=== PATIENT | male | born 1950 | race Caucasian/White ===

== ENCOUNTER 2017-10-07 16:35 | Inpatient (IN) | payer OTHER, MEDICARE ==
[~2017-10-07] VITALS: Ht 175.3 cm; Wt 108.0 kg
[~2017-10-07 16:35] MED LIST: ATOR10 PO; DIAB1.25 PO; ROSI1TAB23
[2017-10-07 16:38] VITALS: BP 139/89; PULSE 111; RESP 18; TEMP 98.2; O2SAT 96
[2017-10-07 18:20] LABS: AUTOMATED NEUTROPHIL # 8.4 TH/MM3 (1.8-7.7); BASOPHIL # 0.1 TH/MM3 (0-0.2); BASOPHIL % 1.1 % (0.0-2.0); EOSINOPHIL # 0.5 TH/MM3 (0-0.4); EOSINOPHIL % 4.1 % (0.0-4.0); HEMATOCRIT 33.2 % (39.0-51.0); HEMOGLOBIN 11.3 GM/DL (13.0-17.0); LYMPH % 12.6 % (9.0-44.0); LYMPHOCYTE # 1.4 TH/MM3 (1.0-4.8); MEAN CELL VOLUME 85.9 FL (80.0-100.0); MEAN CORPUSCULAR HEMOGLOBIN 29.2 PG (27.0-34.0); MEAN PLATELET VOLUME 7.7 FL (7.0-11.0); MONO % 8.9 % (0.0-8.0); NEUT % 73.3 % (16.0-70.0); PLATELET COUNT 291 TH/MM3 (150-450); RED BLOOD COUNT 3.86 MIL/MM3 (4.50-5.90); RED CELL DISTRIBUTION WIDTH 16.4 % (11.6-17.2); WHITE BLOOD COUNT 11.4 TH/MM3 (4.0-11.0)
[2017-10-07 18:21] LABS: PROTHROMBIN TIME - PATIENT 10.3 SEC (9.8-11.6)
[2017-10-07 18:28] LABS: BICARBONATE 26.5 MEQ/L (21.0-32.0); CALCIUM 9.2 MG/DL (8.5-10.1); CREATININE 3.41 MG/DL (0.60-1.30)
[2017-10-07] MEDS ORDERED: HYDR-3799 PO (18:45)
[2017-10-07] MEDS ORDERED: CALC667T PO (18:45)
[2017-10-07] MEDS ORDERED: AMLO10TA2 PO (18:45)
[2017-10-07] MEDS ORDERED: METO10TA4 PO (18:45)
[2017-10-07] MEDS ORDERED: NOVOINJ3 SQ (18:45)
[2017-10-07] MEDS ORDERED: CHOL10008 PO (18:45)
[2017-10-07] MEDS ORDERED: ALLO300T2 PO (18:45)
[2017-10-07] MEDS ORDERED: FURO20TA PO (18:45)
[2017-10-07] MEDS ORDERED: CLOP75TA PO (18:45)
[2017-10-07] MEDS ORDERED: CARV6.252 PO (18:45)
[2017-10-07] MEDS ORDERED: CENTCHW4 CHEW (18:45)
[2017-10-07] MEDS ORDERED: CLON0.1T PO (18:45)
[2017-10-07] MEDS ORDERED: LANTUS2P SQ (18:45)
[2017-10-07] MEDS ORDERED: FERR324T4 PO (18:45)
[2017-10-07] MEDS ORDERED: ATOR80TA45 PO (18:45)
[2017-10-07] MEDS ORDERED: ASPI81TA23 PO (18:45)
[2017-10-07 19:25] VITALS: BP 168/93; PULSE 106; RESP 20; O2SAT 95
--- NOTE | 2017-10-07 19:41 | PD ---
HPI Chief Complaint: General Weakness Time Seen by Provider: 19:21 Travel History International Travel<30 days: No Contact w/Intl Traveler<30days: No Traveled to known affect area: No History of Present Illness HPI 59-year-old male arrives with increasing weakness of the left leg. He reports falling for the past 2 weeks and every day it seems to be worsening for him with more frequent falls. Imaging was performed at outside facility revealing spinal canal stenosis and spinal stenosis at L4-5 and L5-S1 by CT. He denies changes in bowel or bladder habits/incontinence. He also denies any saddle anesthesia or numbness/tingling. Timing constant. Symptoms are gradually worsening. PFSH Past Medical History Hx Anticoagulant Therapy: Yes Arthritis: Yes Cardiovascular Problems: Yes High Cholesterol: Yes Diabetes: Yes Patient Takes Glucophage: No Hypertension: Yes Sleep Apnea: Yes Tetanus Vaccination: < 5 Years Influenza Vaccination: Yes Past Surgical History Abdominal Surgery: Yes Cholecystectomy: Yes Social History Alcohol Use: Yes ([employer]) Tobacco Use: No Substance Use: No Allergies-Medications (Allergen,Severity, Reaction): Coded Allergies: No Known Allergies (Verified Allergy, Mild, 10/07/17) Reported Meds & Prescriptions Reported Meds & Active Scripts Active Reported Metolazone 10 Mg Tab 10 Mg PO DAILY Clopidogrel (Clopidogrel Bisulfate) 75 Mg Tab 75 Mg PO DAILY Allopurinol 300 Mg Tab 300 Mg PO DAILY Furosemide 20 Mg Tab 20 Mg PO DAILY Aspirin EC (Aspirin) 81 Mg Tabdr 81 Mg PO DAILY Carvedilol 6.25 Mg Tab 3.125 Mg PO BID Clonidine (Clonidine HCl) 0.1 Mg Tab 0.1 Mg PO BID Amlodipine (Amlodipine Besylate) 10 Mg Tab 10 Mg PO DAILY Atorvastatin (Atorvastatin Calcium) 80 Mg Tab 80 Mg PO HS Hydralazine HCl 25 Mg Tablet 25 Mg PO TID Centrum (Multiple Vitamins W/ Minerals) 1 Chew 1 Tab CHEW DAILY Vitamin D3 (Cholecalciferol) 1,000 Unit Cap 2,000 Units PO DAILY Ferrous Sulfate DR (Ferrous Sulfate) 324 Mg Tabdr 324 Mg PO DAILY Calcium Acetate (Phosphate Binder) 667 Mg Tab 667 Mg PO TID Novolog Flexpen Inj (Insulin Aspart) 300 Unit/3 Ml Pen 1 Units SQ TIDAC Lantus Inj (Insulin Glargine) 1,000 Unit/10 Ml Vial 70 Units SQ HS Review of Systems Except as stated in HPI: all other systems reviewed are Neg General / Constitutional: No: Fever Physical Exam Narrative GENERAL: 67-year-old male pleasant in mild distress Vital Signs Date Time Temp Pulse Resp B/P (MAP) Pulse Ox O2 Delivery O2 Flow Rate FiO2 10/07/17 19:25 106 20 168/93 (118) 95 Room Air 10/07/17 16:38 98.2 111 18 139/89 (106) 96 NEUROLOGIC exam: Flexion-extension at the knee is mildly decreased compared to the right approximately 4/5. Ankle flexion and extension is somewhat limited on the left compared to the right about 4 or 5. There is no deep tendon reflex in the patellar tendon on the left side however it is intact on the right. The patient is able to stand and take a few steps however does require assistance with both arms and the exam was furthermore limited by pain. SKIN: Warm and dry. HEAD: Atraumatic. Normocephalic. EYES: Pupils equal and round. No scleral icterus. No injection or drainage. ENT: No nasal bleeding or discharge. Mucous membranes pink and moist. NECK: Trachea midline. No JVD. CARDIOVASCULAR: Regular rate and rhythm. RESPIRATORY: No accessory muscle use. Clear to auscultation. Breath sounds equal bilaterally. GASTROINTESTINAL: Abdomen soft, non-tender, nondistended. Hepatic and splenic margins not palpable. MUSCULOSKELETAL: Extremities without clubbing, cyanosis, or edema. No obvious deformities. PSYCHIATRIC: Appropriate mood and affect; insight and judgment normal. Data Data Last Documented VS Vital Signs Date Time Temp Pulse Resp B/P (MAP) Pulse Ox O2 Delivery O2 Flow Rate FiO2 10/07/17 19:25 106 20 168/93 (118) 95 Room Air 10/07/17 16:38 98.2 Orders Orders Complete Blood Count With Diff (10/07/17 17:00) Basic Metabolic Panel (Bmp) (10/07/17 17:00) Coag Profile (10/07/17 17:00) Electrocardiogram (10/07/17 ) Admit Order (Ed Use Only) (10/07/17 ) Vital Signs (Adult) Q4H (10/07/17 19:41) Diet Heart Healthy (10/08/17 Breakfast) Activity Bed Rest (10/07/17 19:41) Labs Laboratory Tests Test 10/07/17 17:30 White Blood Count 11.4 TH/MM3 Red Blood Count 3.86 MIL/MM3 Hemoglobin 11.3 GM/DL Hematocrit 33.2 % Mean Corpuscular Volume 85.9 FL Mean Corpuscular Hemoglobin 29.2 PG Mean Corpuscular Hemoglobin Concent 34.0 % Red Cell Distribution Width 16.4 % Platelet Count 291 TH/MM3 Mean Platelet Volume 7.7 FL Neutrophils (%) (Auto) 73.3 % Lymphocytes (%) (Auto) 12.6 % Monocytes (%) (Auto) 8.9 % Eosinophils (%) (Auto) 4.1 % Basophils (%) (Auto) 1.1 % Neutrophils # (Auto) 8.4 TH/MM3 Lymphocytes # (Auto) 1.4 TH/MM3 Monocytes # (Auto) 1.0 TH/MM3 Eosinophils # (Auto) 0.5 TH/MM3 Basophils # (Auto) 0.1 TH/MM3 CBC Comment DIFF FINAL Differential Comment Prothrombin Time 10.3 SEC Prothromb Time International Ratio 1.0 RATIO Activated Partial Thromboplast Time 29.9 SEC Blood Urea Nitrogen 59 MG/DL Creatinine 3.41 MG/DL Random Glucose 145 MG/DL Calcium Level 9.2 MG/DL Sodium Level 137 MEQ/L Potassium Level 4.0 MEQ/L Chloride Level 100 MEQ/L Carbon Dioxide Level 26.5 MEQ/L Anion Gap 11 MEQ/L Estimat Glomerular Filtration Rate 18 ML/MIN MDM Medical Decision Making Medical Screen Exam Complete: Yes Emergency Medical Condition: Yes Medical Record Reviewed: Yes Differential Diagnosis Fracture, spinal stenosis, acute on chronic degenerative disc disease, abscess Narrative Course Patient has a symptomatic spinal cord disease. The case was discussed with Dr. Guaman our neurosurgeon. Will admit to the hospitalist service service with a consult to him. CBC & BMP Diagram 10/07/17 17:30 Calcium Level 9.2 d/w Dr Guaman d/w Dr Stallworth Diagnosis Primary Impression: Weakness Additional Impression: Stenosis of lumbosacral spine Admitting Information Admitting Physician Requests: Observation Trey Rojas MD Oct 07, 2017 19:41
[2017-10-07] MEDS ORDERED: ACETAMINOPHEN/HYDROcodone 325 MG/5 MG TAB PO ONE (20:00)
[2017-10-07] MEDS ORDERED: GLUCAGON 1 MG/ML VIAL OTHER PRN (20:15)
[2017-10-07] MEDS ORDERED: DEXTROSE 50% IN WATER 50 ML VIAL(D50) IV PUSH PRN (20:15)
[2017-10-07] MEDS ORDERED: ACETAMINOPHEN/HYDROcodone 325 MG/5 MG TAB PO PRN (20:15)
[2017-10-07] MEDS ORDERED: INSULIN GLARGINE 1,000 UNITS/10 ML VIAL SQ SCH (21:00)
[2017-10-07] MEDS ORDERED: INSULIN DETEMIR 100 UNITS/ML VIAL SQ SCH (21:15)
[2017-10-07 22:15] VITALS: BP 180/100; PULSE 107; RESP 20; TEMP 97.4; O2SAT 95
[2017-10-07] MEDS: cloNIDine HCL 0.1 MG TAB PO SCH (22:25)
[2017-10-07] MEDS: INSULIN ASPART SUPPLEMENTAL SCALE SQ SCH (22:26)
[2017-10-07] MEDS: ATORVASTATIN 80 MG TAB PO SCH (22:26)
[2017-10-07] MEDS: CARVEDILOL 3.125 MG TAB PO SCH (22:31)
--- NOTE | 2017-10-07 22:38 | HHI.HP ---
[facility] Admission Diagnosis Spinal Stenosis; LLE Weakness Diagnoses: Travel History International Travel<30 Days: No Contact w/Intl Traveler <30 Da: No Traveled to Known Affected Are: No History of Present Illness 67-year-old male with a past medical history significant for chronic kidney disease stage IV, diabetes mellitus, hypertension and hyperlipidemia presents the emergency department for evaluation of left lower extremity weakness. The patient reports that approximately one month ago he began having left lower extremity weakness and numbness/tingling. He also reports that he started falling. He was seen in the hospital last week in [place] where he was found to have severe spinal stenosis at L4-L5 and L5-S1. Patient denies any bowel or bladder incontinence. Per patient report, they wanted him to undergo an EMG at the Hospital in [place] however were unable to do so secondary to his chronic kidney disease. He was not evaluated by neurosurgery at this time. The patient reports an inability to raise his left lower extremity. He reports associated pain/numbness/tingling. Denies chest pain or shortness of breath. Denies nausea/vomiting/diarrhea. Review of Systems Except as stated in HPI: all other systems reviewed are Neg Past Family Social History Past Medical History Chronic kidney disease stage IV Diabetes mellitus Hypertension Hyperlipidemia Past Surgical History Cervical fusion Appendectomy Reported Medications Reported Meds & Active Scripts Active Reported Metolazone 10 Mg Tab 10 Mg PO DAILY Clopidogrel (Clopidogrel Bisulfate) 75 Mg Tab 75 Mg PO DAILY Allopurinol 300 Mg Tab 300 Mg PO DAILY Furosemide 20 Mg Tab 20 Mg PO DAILY Aspirin EC (Aspirin) 81 Mg Tabdr 81 Mg PO DAILY Carvedilol 6.25 Mg Tab 3.125 Mg PO BID Clonidine (Clonidine HCl) 0.1 Mg Tab 0.1 Mg PO BID Amlodipine (Amlodipine Besylate) 10 Mg Tab 10 Mg PO DAILY Atorvastatin (Atorvastatin Calcium) 80 Mg Tab 80 Mg PO HS Hydralazine HCl 25 Mg Tablet 25 Mg PO TID Centrum (Multiple Vitamins W/ Minerals) 1 Chew 1 Tab CHEW DAILY Vitamin D3 (Cholecalciferol) 1,000 Unit Cap 2,000 Units PO DAILY Ferrous Sulfate (Ferrous Sulfate) 324 Mg Tabdr 324 Mg PO DAILY Calcium Acetate (Phosphate Binder) 667 Mg Tab 667 Mg PO TID Novolog Flexpen Inj (Insulin Aspart) 300 Unit/3 Ml Pen 1 Units SQ TIDAC Lantus Inj (Insulin Glargine) 1,000 Unit/10 Ml Vial 70 Units SQ HS Allergies: Coded Allergies: No Known Allergies (Verified Allergy, Mild, 10/07/17) Family History Negative for CAD/DM Social History Remote history of smoking. Rare alcohol. Denies illicit drugs. Physical Exam Vital Signs Vital Signs Date Time Temp Pulse Resp B/P (MAP) Pulse Ox O2 Delivery O2 Flow Rate FiO2 10/07/17 19:25 106 20 168/93 (118) 95 Room Air 10/07/17 16:38 98.2 111 18 139/89 (106) 96 Physical Exam GENERAL: Obese, male lying in bed SKIN: No rashes, ecchymoses or lesions. Cool and dry. HEAD: Atraumatic. Normocephalic. No temporal or scalp tenderness. EYES: Pupils equal round and reactive. Extraocular motions intact. No scleral icterus. No injection or drainage. ENT: Nose without bleeding, purulent drainage or septal hematoma. Throat without erythema, tonsillar hypertrophy or exudate. Uvula midline. Airway patent. NECK: Trachea midline. No JVD or lymphadenopathy. Supple, nontender, no meningeal signs. CARDIOVASCULAR: Regular rate and rhythm without murmurs, gallops, or rubs. RESPIRATORY: Clear to auscultation. Breath sounds equal bilaterally. No wheezes , rales, or rhonchi. GASTROINTESTINAL: Abdomen soft, non-tender, nondistended. No hepato-splenomegaly , or palpable masses. No guarding. MUSCULOSKELETAL: Extremities without clubbing, cyanosis, or edema. No joint tenderness, effusion, or edema noted. No calf tenderness. NEUROLOGICAL: Awake and alert. Cranial nerves II through XII intact. Motor and sensory grossly within normal limits. Normal speech. Left lower extremity plantar flexion/extension 5/5. Unable to raise his left lower extremity off the bed. Laboratory Laboratory Tests Test 10/07/17 17:30 White Blood Count 11.4 Red Blood Count 3.86 Hemoglobin 11.3 Hematocrit 33.2 Mean Corpuscular Volume 85.9 Mean Corpuscular Hemoglobin 29.2 Mean Corpuscular Hemoglobin Concent 34.0 Red Cell Distribution Width 16.4 Platelet Count 291 Mean Platelet Volume 7.7 Neutrophils (%) (Auto) 73.3 Lymphocytes (%) (Auto) 12.6 Monocytes (%) (Auto) 8.9 Eosinophils (%) (Auto) 4.1 Basophils (%) (Auto) 1.1 Neutrophils # (Auto) 8.4 Lymphocytes # (Auto) 1.4 Monocytes # (Auto) 1.0 Eosinophils # (Auto) 0.5 Basophils # (Auto) 0.1 CBC Comment DIFF FINAL Differential Comment Prothrombin Time 10.3 Prothromb Time International Ratio 1.0 Activated Partial Thromboplast Time 29.9 Blood Urea Nitrogen 59 Creatinine 3.41 Random Glucose 145 Calcium Level 9.2 Sodium Level 137 Potassium Level 4.0 Chloride Level 100 Carbon Dioxide Level 26.5 Anion Gap 11 Estimat Glomerular Filtration Rate 18 Result Diagram: 10/07/17172910/07/17 173 Caprini VTE Risk Assessment Caprini VTE Risk Assessment: Mod/High Risk (score >= 2) Caprini Risk Assessment Model Point Value = 1 Point Value = 2 Point Value = 3 Point Value = 5 Age 41-60 Minor surgery BMI > 25 kg/m2 Swollen legs Varicose veins or History of unexplained or recurrent spontaneous Oral contraceptives or hormone replacement Sepsis (< 1 month) Serious lung disease, including pneumonia (< 1 month) Abnormal pulmonary function Acute myocardial infarction Congestive heart failure (< 1 month) History of inflammatory bowel disease Medical patient at bed rest Age 61-74 Arthroscopic surgery Major open surgery (> 45 min) Laparoscopic surgery (> 45 min) Malignancy Confined to bed (> 72 hours) Immobilizing plaster cast Central venous access Age >= 75 History of VTE Family history of VTE Factor V Leiden Prothrombin [id number] Lupus anticoagulant Anticardiolipin antibodies Elevated serum homocysteine Heparin-induced thrombocytopenia Other congenital or acquired thrombophilia Stroke (< 1 month) Elective arthroplasty Hip, pelvis, or leg fracture Acute spinal cord injury (< 1 month) Prophylaxis Regimen Total Risk Factor Score Risk Level Prophylaxis Regimen 0-1 Low Early ambulation 2 Moderate Order ONE of the following: *Sequential Compression Device (SCD) *Heparin 5000 units SQ BID 3-4 Higher Order ONE of the following medications: *Heparin 5000 units SQ TID *Enoxaparin/Lovenox 40 mg SQ daily (WT < 150 kg, CrCl > 30 mL/min) *Enoxaparin/Lovenox 30 mg SQ daily (WT < 150 kg, CrCl > 10-29 mL/min) *Enoxaparin/Lovenox 30 mg SQ BID (WT < 150 kg, CrCl > 30 mL/min) AND/OR *Sequential Compression Device (SCD) 5 or more Highest Order ONE of the following medications: *Heparin 5000 units SQ TID (Preferred with Epidurals) *Enoxaparin/Lovenox 40 mg SQ daily (WT < 150 kg, CrCl > 30 mL/min) *Enoxaparin/Lovenox 30 mg SQ daily (WT < 150 kg, CrCl > 10-29 mL/min) *Enoxaparin/Lovenox 30 mg SQ BID (WT < 150 kg, CrCl > 30 mL/min) AND *Sequential Compression Device (SCD) Assessment and Plan Assessment and Plan Assessment/plan: 1. Severe spinal stenosis CT done at outside hospital shows spinal stenosis at L4-5 and L5-S1 by CT Neurosurgery consulted, appreciate assistance 2. Chronic kidney disease stage IV BUN/creatinine 59/3.41 Patient seen by his kinesiologist, Dr. Abebe at the [facility], earlier this week who stated his renal function was stable Monitor renal function 3. Diabetes mellitus Home Levemir on hold as patient nothing by mouth and has a blood glucose of 145 Sliding scale insulin Monitor blood glucose 4. Hypertension/hyperlipidemia Continue home medications FEN Nothing by mouth Electrolytes: Monitor and replete when necessary NS at 100 cc/hr Holding pharmacologic anticoagulation for possible operative intervention Physician Certification 2 Midnight Certification Type: Admission for Inpatient Services Order for Inpatient Services The services are ordered in accordance with Medicare regulations or non- Medicare payer requirements, as applicable. In the case of services not specified as inpatient-only, they are appropriately provided as inpatient services in accordance with the 2-midnight benchmark. Estimated LOS (days): 2 2 days is the estimated time the patient will need to remain in the hospital, assuming treatment plan goals are met and no additional complications. Post-Hospital Plan: Not yet determined Nadege Stallworth MD Oct 07, 2017 22:38
[2017-10-07] MEDS ORDERED: SODIUM CHLORID 0.9% 500 ML IV PRN (23:15)
[2017-10-07] MEDS ORDERED: CHLORHEXIDINE GLUCONATE 2 % 1 PACK (2 CLOTHS) TOPICAL PRN (23:15)
[2017-10-07] MEDS ORDERED: POVIDONE IODINE 5% (ANTISEPSIS KIT) 4 APPLICATIONS EACH NARE PRN (23:15)
[2017-10-08] VITALS (7 sets, daily range): BP systolic 141–154; BP diastolic 83–94; PULSE 91–106; RESP 16–20; TEMP 96.2–97.3; O2SAT 94–99
[2017-10-08] MEDS: ACETAMINOPHEN/HYDROcodone 325 MG/10 MG TAB PO PRN ×4 (04:45→22:05)
--- NOTE | 2017-10-08 08:13 | EKG ---
Date Performed: 10/07/2017 Time Performed: 18:33:37 PTAGE: 67 years EKG: SINUS TACHYCARDIA WITH FIRST DEGREE AV BLOCK NONSPECIFIC T-WAVE ABNORMALITY ABNORMAL ECG PREVIOUS TRACING : 02/23/2008 14.40 Since the prior tracing, there has been no significant alcantar DOCTOR: Iva Savage Interpretating Date/Time 10/08/2017 08:11:09
[2017-10-08] MEDS ORDERED: METOLAZONE 5 MG TAB PO SCH (09:00)
[2017-10-08] MEDS ORDERED: ALLOPURINOL 300 MG TAB PO SCH (09:00)
[2017-10-08] MEDS ORDERED: FUROSEMIDE 20 MG TAB PO SCH (09:00)
[2017-10-08] MEDS ORDERED: NON-FORMULARY DRUG (Ferrous Sulfate DR 324 MG) PO SCH (09:00)
[2017-10-08] MEDS: CARVEDILOL 3.125 MG TAB PO SCH ×2 (09:00→20:31)
[2017-10-08] MEDS ORDERED: ASPIRIN EC 81 MG TABEC PO SCH (09:00)
[2017-10-08] MEDS ORDERED: CLOPIDOGREL 75 MG TAB PO SCH (09:00)
--- NOTE | 2017-10-08 09:05 | PD.CONS ---
HPI Service neuro Consult Requested By Dr Rojas Reason for Consult Weakness Primary Care Physician [facility] History of Present Illness This is a 67-year-old male with history of chronic kidney disease stage IV, diabetes mellitus, hypertension and hyperlipidemia, who presents the emergency department for evaluation of left lower extremity weakness. He reports that approximately one month ago he began having left lower extremity weakness and numbness/tingling. He has been falling. He was seen in the hospital last week in [place] where he was found to have severe spinal stenosis at L4-L5 and L5-S1 and reportedly sent to my office. He denies any bowel or bladder incontinence. Hde developed inability to raise his left lower extremity. He has associated pain/numbness/tingling. Denies chest pain or shortness of breath. Denies nausea/vomiting. He has been uin a wheelchair, unable to ambulate for the past 4 days. Neurosurgical consultation was requested Review of Systems Constitutional: DENIES: Diaphoretic episodes, Fatigue, Fever, Weight gain, Weight loss, Chills, Dizziness, Change in appetite, Night Sweats Endocrine: DENIES: Heat/cold intolerance, Polydipsia, Polyuria, Polyphagia Eyes: DENIES: Blurred vision, Diplopia, Eye inflammation, Eye pain, Vision loss , Photosensitivity, Double Vision Ears, nose, mouth, throat: COMPLAINS OF: Hearing loss, DENIES: Vertigo, Nasal discharge, Oral lesions, Throat pain, Hoarseness, Ear Pain, Running Nose, Epistaxis, Sinus Pain, Toothache, Odynophagia Respiratory: DENIES: Apneas, Cough, Snoring, Wheezing, Hemoptysis, Sputum production, Shortness of breath Cardiovascular: DENIES: Chest pain, Palpitations, Syncope, Dyspnea on Exertion , PND, Lower Extremity Edema, Orthopnea, Claudication Gastrointestinal: DENIES: Abdominal pain, Black stools, Bloody stools, Constipation, Diarrhea, Nausea, Vomiting, Difficulty Swallowing, Anorexia Genitourinary: DENIES: Sexual dysfunction, Urinary frequency, Urinary incontinence, Urgency, Hematuria, Dysuria, Nocturia, Penile Discharge, Testicular Pain, Testicular Swelling Musculoskeletal: COMPLAINS OF: Joint pain, Back pain, DENIES: Muscle aches, Stiffness, Joint Swelling, Neck pain Hematologic/lymphatic: DENIES: Bruising, Lymphadenopathy Immunologic/allergic: DENIES: Eczema, Urticaria Neurologic: COMPLAINS OF: Abnormal gait, Localized weakness, Paresthesias, DENIES: Headache, Seizures, Speech Problems, Tremor, Poor Balance Psychiatric: DENIES: Anxiety, Confusion, Mood changes, Depression, Hallucinations, Agitation, Suicidal Ideation, Homicidal Ideation, Delusions Past Family Social History Allergies: Coded Allergies: No Known Allergies (Verified Allergy, Mild, 10/07/17) Past Medical History Chronic kidney disease stage IV Diabetes mellitus Hypertension Hyperlipidemia Past Surgical History Cervical fusion Appendectomy Reported Medications Metolazone 10 Mg Tab 10 Mg PO DAILY Clopidogrel (Clopidogrel Bisulfate) 75 Mg Tab 75 Mg PO DAILY Allopurinol 300 Mg Tab 300 Mg PO DAILY Furosemide 20 Mg Tab 20 Mg PO DAILY Aspirin EC (Aspirin) 81 Mg Tabdr 81 Mg PO DAILY Carvedilol 6.25 Mg Tab 3.125 Mg PO BID Clonidine (Clonidine HCl) 0.1 Mg Tab 0.1 Mg PO BID Amlodipine (Amlodipine Besylate) 10 Mg Tab 10 Mg PO DAILY Atorvastatin (Atorvastatin Calcium) 80 Mg Tab 80 Mg PO HS Hydralazine HCl 25 Mg Tablet 25 Mg PO TID Centrum (Multiple Vitamins W/ Minerals) 1 Chew 1 Tab CHEW DAILY Vitamin D3 (Cholecalciferol) 1,000 Unit Cap 2,000 Units PO DAILY Ferrous Sulfate DR (Ferrous Sulfate) 324 Mg Tabdr 324 Mg PO DAILY Calcium Acetate (Phosphate Binder) 667 Mg Tab 667 Mg PO TID Novolog Flexpen Inj (Insulin Aspart) 300 Unit/3 Ml Pen 1 Units SQ TIDAC Lantus Inj (Insulin Glargine) 1,000 Unit/10 Ml Vial 70 Units SQ HS Active Ordered Medications Negative for CAD/DM Family History Remote history of smoking. Rare alcohol. Denies illicit drugs. Physical Exam Vital Signs Vital Signs Date Time Temp Pulse Resp B/P (MAP) Pulse Ox O2 Delivery O2 Flow Rate FiO2 10/08/17 07:50 96.5 92 18 141/92 (108) 96 10/08/17 04:00 96.2 91 20 143/90 (107) 97 Manual Cuff/Auscultation 10/08/17 01:00 96.2 98 20 145/85 (105) 99 10/07/17 22:15 97.4 107 20 180/100 (126) 95 Automatic Cuff 10/07/17 19:25 106 20 168/93 (118) 95 Room Air 10/07/17 16:38 98.2 111 18 139/89 (106) 96 Physical Exam Mr Leonard is alert, awake and oriented to time, place and person. Speech is fluent. Higher cognitive functions are normal. Cranial nerve examination demonstrates the pupils to be equal, round, and reactive to light. Extra-ocular movements are intact. Facial motor and sensory function are normal and symmetrical. Gross hearing is mildy decreased. The uvula is midline and elevates symmetrically with the soft palate. Sternocleidomastoid and trapezius muscles have normal and symmetrical strength. Other cranial nerves are intact. Neck is soft and supple. Cervical spine has a decreased range of motion in anterior flexion, extension, lateral bending, and rotation without pain. There is no tenderness to palpation to the spinous processes or paraspinal muscles. Muscle testing reveals normal bulk and tone overall without rigidity, spasticity , fasciculations, or atrophy. Muscle strength is 5/5 in all muscle groups of both upper extremities including deltoid, biceps, triceps, brachioradialis, wrist extension and title lawyer. In the lower extremities, strength is 5/5 in his right iliopsoas with 4/5 on the left due to give away, 5/5 right quadriceps with 3/5 on the left with give away, 5/5 right hamstrings, 5/5 plantar flexion, dorsiflexion, and extensor hallicus longus are 5/5 on the right with 2/5 on the left. Sensory examination is diffusely decreased in his left lower extremity, otherwise intact to light touch and sharp/dull discrimination Deep tendon reflexes are 1+ and symmetrical in the biceps, triceps, and brachioradialis, bilaterally, in the upper extremities. In the lower extremities , the patellar and Achilles are trace, bilaterally. There is a bilateral plantar flexion response. Hoffmanns sign is negative. There is no clonus or other abnormal reflexes noted. Cerebellar examination is intact to [id number] test, rapid rhythmic alternating motion. There is no dysmetria, dysdiadochokinesia, truncal ataxia, or tremor. CARDIOVASCULAR: Regular rate and rhythm RESPIRATORY: Clear, No wheezes, rales, or rhonchi. Skin warm and dry Laboratory Laboratory Tests Test 10/07/17 17:30 White Blood Count 11.4 Red Blood Count 3.86 Hemoglobin 11.3 Hematocrit 33.2 Mean Corpuscular Volume 85.9 Mean Corpuscular Hemoglobin 29.2 Mean Corpuscular Hemoglobin Concent 34.0 Red Cell Distribution Width 16.4 Platelet Count 291 Mean Platelet Volume 7.7 Neutrophils (%) (Auto) 73.3 Lymphocytes (%) (Auto) 12.6 Monocytes (%) (Auto) 8.9 Eosinophils (%) (Auto) 4.1 Basophils (%) (Auto) 1.1 Neutrophils # (Auto) 8.4 Lymphocytes # (Auto) 1.4 Monocytes # (Auto) 1.0 Eosinophils # (Auto) 0.5 Basophils # (Auto) 0.1 CBC Comment DIFF FINAL Differential Comment Prothrombin Time 10.3 Prothromb Time International Ratio 1.0 Activated Partial Thromboplast Time 29.9 Blood Urea Nitrogen 59 Creatinine 3.41 Random Glucose 145 Calcium Level 9.2 Sodium Level 137 Potassium Level 4.0 Chloride Level 100 Carbon Dioxide Level 26.5 Anion Gap 11 Estimat Glomerular Filtration Rate 18 Result Diagram: 10/07/17 1730 10/07/17 1730 Imaging Last 48 hours Impressions Lumbar Spine MRI 10/08/17 0941 Signed Impressions: Service Date/Time: September 12:01 - CONCLUSION: 1. At L4- 5 is a broad based disc bulge with extrusion on the left side laterally impinging on the left L4 nerve root. Mild right-sided foraminal stenosis as well. Mild central canal stenosis. 2. Normal alignment of the lumbar spine. Conus medullaris is intact. No acute fracture. Sukhjinder Atkins MD Thoracic Spine MRI 10/08/17 0000 Signed Impressions: Service Date/Time: September 12:01 - CONCLUSION: 1. No acute fracture or spondylolisthesis. No cord signal abnormalities. Facet hypertrophic changes as above encroaching on the lateral recesses but without significant central canal stenosis. No direct nerve root compression no discrete disc protrusions. Sukhjinder Atkins MD Renal Ultrasound 10/08/17 0000 Signed Impressions: Service Date/Time: September 15:15 - CONCLUSION: 1. Medical renal disease without obstruction. 2. Bilateral simple renal cysts. David Little Jr., MD Lumbar Spine X-Ray 10/08/17 0000 Signed Impressions: Service Date/Time: September 11:24 - CONCLUSION: Almost no flexion or extension elicited Albino Christiansen MD Assessment and Plan Assessment and Plan Raymonrini VTE Risk Assessment Caprini VTE Risk Assessment Caprini VTE Risk Assessment: Mod/High Risk (score >= 2) Caprini Risk Assessment Model Point Value = 1 Point Value = 2 Point Value = 3 Point Value = 5 Age 41-60 Minor surgery BMI > 25 kg/m2 Swollen legs Varicose veins or History of unexplained or recurrent spontaneous Oral contraceptives or hormone replacement Sepsis (< 1 month) Serious lung disease, including pneumonia (< 1 month) Abnormal pulmonary function Acute myocardial infarction Congestive heart failure (< 1 month) History of inflammatory bowel disease Medical patient at bed rest Age 61-74 Arthroscopic surgery Major open surgery (> 45 min) Laparoscopic surgery (> 45 min) Malignancy Confined to bed (> 72 hours) Immobilizing plaster cast Central venous access Age >= 75 History of VTE Family history of VTE Factor V Leiden Prothrombin [id number] Lupus anticoagulant Anticardiolipin antibodies Elevated serum homocysteine Heparin-induced thrombocytopenia Other congenital or acquired thrombophilia Stroke (< 1 month) Elective arthroplasty Hip, pelvis, or leg fracture Acute spinal cord injury (< 1 month) Prophylaxis Regimen Total Risk Factor Score Risk Level Prophylaxis Regimen 0-1 Low Early ambulation 2 Moderate Order ONE of the following: *Sequential Compression Device (SCD) *Heparin 5000 units SQ BID 3-4 Higher Order ONE of the following medications: *Heparin 5000 units SQ TID *Enoxaparin/Lovenox 40 mg SQ daily (WT < 150 kg, CrCl > 30 mL/min) *Enoxaparin/Lovenox 30 mg SQ daily (WT < 150 kg, CrCl > 10-29 mL/min) *Enoxaparin/Lovenox 30 mg SQ BID (WT < 150 kg, CrCl > 30 mL/min) AND/OR *Sequential Compression Device (SCD) 5 or more Highest Order ONE of the following medications: *Heparin 5000 units SQ TID (Preferred with Epidurals) *Enoxaparin/Lovenox 40 mg SQ daily (WT < 150 kg, CrCl > 30 mL/min) *Enoxaparin/Lovenox 30 mg SQ daily (WT < 150 kg, CrCl > 10-29 mL/min) *Enoxaparin/Lovenox 30 mg SQ BID (WT < 150 kg, CrCl > 30 mL/min) AND *Sequential Compression Device (SCD) Attending Statement spinal stenosis. CT done at outside hospital shows spinal stenosis at L4-5 and L5-S1 I am concerned about hios severe weakness. I ordered an MRI of the thoracic and lumbar spine I reviewed his MRI. At L4-5 he has a significant disk extrusion. He is unable to walk due to his weakness and he is developing a left foot drop., Getting worse rapidly. I discussed with him the alternatives of treatment including the alternative of continuing nonsurgical treatment with further physical therapy, analgesics, and antiimflammatories, versus consideration to a surgical decompression with a left L4-5 hemilaminectomy, mesoofacetectomy, foraminotomy with microsurgical resection of the disk. . Using the patients radiologic studies, anatomical model(s) I have discussed the details of the surgical decompression including the [id number] procedure, its indications, alternatives, risks, and potential complications. Risks and potential complications include, but are not limited to , infection, blood loss, CSF leak, partial or complete loss of sight in one or both eyes, paresis, paralysis, permanent pain, hoarseness or difficulty swallowing, loss of bowel or bladder function, complications from anesthesia, blood clot, stroke, myocardial infarction, or even . Given his comorbidities he is at increased surgical risk. He underwent a stress test during the past month He was taking ASA and Plavix, last dose of Plavix was the past Thursday Chronic kidney disease stage IV BUN/creatinine 59/3.41 Monitor renal function. Consult Feed Mixer Helper Diabetes mellitus. Sliding scale insulin. Monitor blood glucose Hypertension/hyperlipidemia. Continue home medications Pulmonary.. Continue aggressive pulmonary toilette, nasotracheal suction, and breathing treatments with nebulizers. Nutrition. NPO Renal. monitor closely urine output, BUN and creatinine Endocrine. Monitor serial Acu checks and SSI as needed in detail ID monitor for signs of infection Protonix for stress ulcer prophylaxis Marino yarelis and SCD's for DVT prophylaxis Mikey Guaman MD Oct 08, 2017 09:05
[2017-10-08] MEDS: hydrALAZINE HCL 25 MG TAB PO SCH ×3 (09:15→17:41)
[2017-10-08] MEDS: cloNIDine HCL 0.1 MG TAB PO SCH ×2 (09:15→20:31)
[2017-10-08] MEDS: ALLOPURINOL 100 MG TAB PO SCH (09:15)
[2017-10-08] MEDS: FERROUS SULFATE 325 MG (65 MG ELEMENTAL IRON) TAB PO SCH (09:15)
[2017-10-08] MEDS: INSULIN ASPART SUPPLEMENTAL SCALE SQ SCH ×4 (09:19→21:08)
[2017-10-08] MEDS: CALCIUM ACETATE 667 MG CAP PO SCH ×3 (10:45→17:40)
[2017-10-08 11:23] LABS: CALCIUM 9.3 MG/DL (8.5-10.1); CREATININE 3.45 MG/DL (0.60-1.30)
--- NOTE | 2017-10-08 11:37 | RADRPT ---
EXAM DATE/TIME: 10/08/2017 11:24 [facility] COMPARISON: No previous studies available for comparison. INDICATIONS : Low back pain. MEDICAL HISTORY : Spinal stenosis. SURGICAL HISTORY : None. ENCOUNTER: Subsequent ACUITY: >1 year PAIN SCORE: 5/10 LOCATION: Bilateral Low back. FINDINGS: There is little or no change in configuration between flexion and extension. The alignment remains no rmal. Disc spaces are reasonably well-preserved throughout. Mild degenerative change present with sma ll endplate osteophytes throughout. CONCLUSION: Almost no flexion or extension elicited Albino Christiansen MD on October 08, 2017 at 11:34 Board Certified Radiologist. This report was verified electronically.
--- NOTE | 2017-10-08 12:36 | RADRPT ---
EXAM DATE/TIME: 10/08/2017 12:01 [facility] COMPARISON: No previous studies available for comparison. INDICATIONS : Lower extremity weakness. MEDICAL HISTORY : Diabetes mellitus type 2. Renal insufficiency, chronic. SURGICAL HISTORY : Appendectomy. Fusion, cervical. ENCOUNTER: Initial ACUITY: 1 day PAIN SCORE: 0/10 LOCATION: Head. TECHNIQUE: Multiplanar multisequence MRI of the thoracic spine was performed. FINDINGS: VERTEBRA: Normal vertebral body height. Homogeneous marrow signal. ALIGNMENT: Normal. CORD: Normal position and configuration. At T2-3 there is some hypertrophic change of the facets on the right side with mild encroachment on t he lateral recess. No significant cord compression. At T10-11 there is some left-sided facet hypertrophy with encroachment on the left lateral recess. No significant cord compression. CONCLUSION: 1. No acute fracture or spondylolisthesis. No cord signal abnormalities. Facet hypertrophic changes a s above encroaching on the lateral recesses but without significant central canal stenosis. No direct nerve root compression no discrete disc protrusions. Sukhjinder Atkins MD on October 08, 2017 at 12:30 Board Certified Radiologist. This report was verified electronically.
--- NOTE | 2017-10-08 12:43 | RADRPT ---
EXAM DATE/TIME: 10/08/2017 12:01 [facility] COMPARISON: No previous studies available for comparison. INDICATIONS : Weakness. Bilateral extremity weakness and lower back pain. MEDICAL HISTORY : Diabetes mellitus type 2. Renal insufficiency. SURGICAL HISTORY : Fusion, cervical. Appendectomy. ENCOUNTER: Initial ACUITY: 2 day PAIN SCORE: 3/10 LOCATION: Lower back. TECHNIQUE: Multiplanar multisequence MRI of the lumbar spine was performed without contrast. FINDINGS: At [id number] there is no significant abnormality. At L3-4 there is a mild disc bulge and facet arthropathy with mild lateral recess and foraminal encro achment bilaterally. At L4-5 there is moderate facet arthropathy and a broad-based posterior disc bulge with focal disc ex trusion into the left lateral recess and neural foramen, impinging on the left L4 nerve root. Mild ce ntral canal stenosis. At L5-S1 there is moderate facet arthropathy. No significant canal or foraminal stenosis. CONCLUSION: 1. At L4-5 is a broad based disc bulge with extrusion on the left side laterally impinging on the lef t L4 nerve root. Mild right-sided foraminal stenosis as well. Mild central canal stenosis. 2. Normal alignment of the lumbar spine. Conus medullaris is intact. No acute fracture. Sukhjinder Atkins MD on October 08, 2017 at 12:36 Board Certified Radiologist. This report was verified electronically.
--- NOTE | 2017-10-08 15:34 | MB ---
cc: MOISES APONTE MD DATE OF CONSULTATION 10/08/2017 REASON FOR CONSULTATION Elevated BUN and creatinine for evaluation. HISTORY OF PRESENT ILLNESS This is a very pleasant 67-year-old male known to me from before. He was seen by me in the office a few years ago with a past medical history of diabetes mellitus, hypertension, chronic kidney disease, and stage IV hyperlipidemia. He came to the hospital with a complaint of back pain and weakness in the leg. I was called to see the patient because of elevated BUN and creatinine. The patient came in here with a creatinine of 3.4 and he had a creatinine of 3.00 ten days before. He came in here and the GFR at that time was 20. 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 He was seen by me for almost six months in the office according to the patient and then he continued following with the [place] reel operator. He was told that he will need dialysis in the future and he was sent to chronic kidney disease class and they educated him more about dialysis. The reason he came to the hospital was because he has this back pain going down to both legs more on the left associated with weakness in the leg. When he went to the [facility] it was found that he has spinal stenosis at L4-L5 and L5-S1. He denies any bladder incontinence. There is no dysuria, hematuria or difficulty in passing urine. There is no nausea or vomiting. There is no history of diarrhea. PAST MEDICAL HISTORY 1. Hypertension 2. Hyperlipidemia 3. Diabetes mellitus 4. Chronic kidney disease 5. Chronic anemia 6. Spinal cord stenosis PAST SURGICAL HISTORY 1. Cervical fusion surgery 2. Appendicectomy REVIEW OF SYSTEMS There is no history of fever. No headache, dizziness or blurring of vision. No shortness breath. No chest pain. No palpitation. No nausea or vomiting. His appetite is normal. No abdominal pain. No history of diarrhea. No dysuria or hematuria. He has this back pain going down to his legs. He was taking Lortab and occasionally taking Excedrin before he came to the hospital. SOCIAL HISTORY The patient is . He has a history of smoking and stopped a long time ago. There is no history of heavy alcoholism. FAMILY HISTORY Negative for any renal disease. ALLERGIES NO KNOWN DRUG ALLERGIES. MEDICATIONS Currently on following medications: 1. Normal saline at 100 mL/hour 2. Coreg 3.125 mg b.i.d. 3. Catapres 0.1 mg b.i.d. 4. Amlodipine 10 mg daily 5. Furosemide 20 mg once a day 6. Metolazone 10 mg daily 7. Ferrous sulfate 325 mg daily 8. Allopurinol 20 mg once a day 9. Lipitor 80 mg q.h.s. 10. Insulin aspart sliding scale 11. PhosLo 667 mg t.i.d. 12. Hydralazine 25 mg t.i.d. PHYSICAL EXAM On examination, the patient is awake and alert. He is laying in the bed not in acute distress. VITAL SIGNS: His last blood pressure was 145/83, he came with a very high blood pressure and his blood pressure highest recorded was 180/100, temperature is 96.6, oxygen saturation 94-96%. HEAD, EYES, EARS, NOSE, AND THROAT: Pupils are mid and constricted. Nonicteric sclerae, conjunctivae pale. NECK: Supple. JVD is not elevated. LUNGS: The patient has bilateral good air entry with occasional wheezing. HEART: S1, S2 regular rhythm. ABDOMEN: Distended, soft and lax. There is no tenderness. Bowel sounds positive. EXTREMITIES: He has mild edema in the legs. INVESTIGATIONS WBC count is 11.4, hemoglobin 11.3, platelet count 291, neutrophils 73.3%. Sodium is 137, potassium 4.0, chloride 100, bicarb 30, BUN 60, creatinine 3.45, glucose 163, INR is 1.0. There is no urinalysis. IMAGING STUDIES The patient has MRI of the lumbar spine done which shows that he has L4-L5 bulging disk, normal alignment of the lumbar spine. Thoracic spine MRI was done which shows no acute fracture or spondylosis. ASSESSMENT/PLAN 1. Chronic kidney disease with possibility of some acute worsening. 2. Spinal stenosis and bulging disc. 3. Hypertension 4. Diabetes mellitus 5. Mild anemia The patient has advanced stage IV renal disease and I received some lab for him which were done as an outpatient and his creatinine was 3.0 ten days before so there is a possibility of some acute element may be prerenal. I will hold his diuretic at present. Agree with continuing the hydration and follow his urine output and the BUN and creatinine. Avoid any nephrotoxins. I will also get the urinalysis to see if he has significant proteinuria and get ultrasound of the kidneys. Thank you for the consultation. I will follow the patient while he is in the hospital. MD TIM Whitaker/LINDA /2:44 PM /3:14 PM
--- NOTE | 2017-10-08 16:08 | RADRPT ---
EXAM DATE/TIME: 10/08/2017 15:15 [facility] COMPARISON: No previous studies available for comparison. INDICATIONS : Abnormal labs. MEDICAL HISTORY : Hypercholesterolemia. Hypertension. Antioagulant therapy. Sleep apnea. Stage 4 renal failure. Kid tawny stones. Arthritis. Diabetes. SURGICAL HISTORY : Cholecystectomy. Cervial fusion with rods and screws. ENCOUNTER: Initial ACUITY: 1 day PAIN SCORE: 0/10 LOCATION: Bilateral flank MEASUREMENTS: RIGHT KIDNEY: 13.1 x 7.0 x 7.3 cm LEFT KIDNEY: 12.4 x 7.8 x 6.6 cm FINDINGS: RIGHT KIDNEY: Diffuse echogenicity with cortical thinning. No hydronephrosis. A 17 mm and 13 mm simple cyst involvi ng the lower pole. LEFT KIDNEY: Diffuse echogenicity with cortical thinning. A 9 mm simple cyst involving the midpole. No hydronephro sis. BLADDER: Within normal limits given the degree of distension. CONCLUSION: 1. Medical renal disease without obstruction. 2. Bilateral simple renal cysts. David Little Jr., MD on October 08, 2017 at 16:06 Board Certified Radiologist. This report was verified electronically.
[2017-10-08 17:30] LABS: BACTERIA, URINE RARE /hpf; BILIRUBIN, URINE NEG (NEG); BLOOD, URINE SMALL (NEG); GLUCOSE,URINE 150 mg/dL (NEG); KETONE, URINE NEG (NEG); MUCUS URINE FEW /lpf (OCC); NITRITE,URINE NEG (NEG); SQUAMOUS EPITHELIAL CELL URINE <1 /hpf (0-5); URINE COLOR LIGHT-YELLOW (YELLW/STRAW); URINE LEUKOCYTE ESTERASE NEG (NEG)
[2017-10-08] MEDS: SODIUM CHLOR 0.9% 1000 ML INJ 1,000 ML IV SCH ×2 (17:56→17:57)
[2017-10-08] MEDS ORDERED: ceFAZolin 2 GM PREMIX 50 ML IV ONE (18:00)
--- NOTE | 2017-10-08 19:27 | ECHRPT ---
Indication: PREOP CONCLUSIONS The left ventricular systolic function is normal with an estimated ejection fraction in the range of 55-60% , study very technically limited and ef is uncertain Mild concentric left ventricular hypertrophy. Normal left ventricular size. The left atrial size is moderately dilated. There is mild tricuspid valve regurgitation. The estimated pulmonary arterial pressure is 33.8 mmHg. BP: 141 / 92 HR: 92 Rhythm: Sinus MEASUREMENTS (Male / Female) Normal Values Technical Quality:Poor 2D ECHO LV Diastolic Diameter PLAX 5.3 cm 4.2 - 5.9 / 3.9 - 5.3 cm LV Systolic Diameter PLAX 4.0 cm IVS Diastolic Thickness 1.2 cm 0.6 - 1.0 / 0.6 - 0.9 cm LVPW Diastolic Thickness 1.2 cm 0.6 - 1.0 / 0.6 - 0.9 cm LV Relative Wall Thickness 0.4 LVOT Diameter 2.2 cm M-MODE Aortic Root Diameter MM 2.6 cm LA Systolic Diameter MM 4.7 cm LA Ao Ratio MM 1.8 AV Cusp Separation MM 2.0 cm DOPPLER AV Peak Velocity 132.0 cm/s AV Peak Gradient 7.0 mmHg LVOT Peak Velocity 105.0 cm/s LVOT Peak Gradient 4.4 mmHg AV Area Cont Eq pk 3.0 cm TR Peak Velocity 244.0 cm/s TR Peak Gradient 23.8 mmHg Right Atrial Pressure 10.0 mmHg Pulmonary Artery Systolic Pressu 33.8 mmHg Right Ventricular Systolic Press 33.8 mmHg PV Peak Velocity 106.0 cm/s PV Peak Gradient 4.5 mmHg FINDINGS LEFT VENTRICLE The left ventricular systolic function is normal with an estimated ejection fraction in the range of 55-60%. Mild concentric left ventricular hypertrophy. Normal left ventricular size. RIGHT VENTRICLE Normal right ventricular size and systolic function. LEFT ATRIUM The left atrial size is moderately dilated. RIGHT ATRIUM The right atrial size is normal. ATRIAL SEPTUM Normal atrial septal thickness without atrial level shunting by limited color doppler interrogation. AORTA The aortic root and proximal ascending aorta are normal in size on limited imaging. MITRAL VALVE Structurally normal mitral valve. No mitral valve stenosis or regurgitation. AORTIC VALVE Trileaflet aortic valve. No aortic valve stenosis or regurgitation. TRICUSPID VALVE There is mild tricuspid valve regurgitation. The estimated pulmonary arterial pressure is 33.8 mmHg. PULMONARY VALVE No pulmonary valve regurgitation or stenosis. VESSELS The inferior vena cava is normal in size. PERICARDIUM No pericardial effusion. Blair Montes MD, FACC, [facility] [place] (Electronically Signed) Final Date:08 October 2017 19:26
[2017-10-08] MEDS: ATORVASTATIN 80 MG TAB PO SCH (20:30)
[2017-10-08] MEDS ORDERED: CHLORHEXIDINE GLUCONATE 4% SOLN 120 ML BTL TOP SCH (21:00)
--- NOTE | 2017-10-08 22:14 | HHI.PR ---
Subjective Remarks Patient seen this morning around 11 AM. Patient seen this morning. Denies any chest pain or shortness breath. Denies any nausea or vomiting. Denies constipation. Objective Vital Signs Date Time Temp Pulse Resp B/P (MAP) Pulse Ox O2 Delivery O2 Flow Rate FiO2 10/08/17 20:06 97.3 103 16 154/90 (111) 95 10/08/17 18:40 106 10/08/17 16:40 97.3 91 16 151/94 (113) 95 10/08/17 11:38 96.6 103 18 145/83 (103) 94 10/08/17 07:50 96.5 92 18 141/92 (108) 96 10/08/17 04:00 96.2 91 20 143/90 (107) 97 Manual Cuff/Auscultation 10/08/17 01:00 96.2 98 20 145/85 (105) 99 10/07/17 22:15 97.4 107 20 180/100 (126) 95 Automatic Cuff I/O 10/07/17 10/07/17 10/07/17 10/08/17 10/08/17 10/08/17 07:00 15:00 23:00 07:00 15:00 23:00 Intake Total 950 ml Balance 950 ml Intake Oral 950 ml # Voids 3 Result Diagram: 10/07/17 1730 10/08/17 0953 Objective Remarks GENERAL: patient sitting up in bed. Appears comfortable. SKIN: Warm and dry. HEAD: Normocephalic. EYES: No scleral icterus. No injection or drainage. NECK: Supple, trachea midline. No JVD. CARDIOVASCULAR: Regular rate and rhythm without murmurs, gallops, or rubs. RESPIRATORY: Breath sounds equal bilaterally. No accessory muscle use. GASTROINTESTINAL: Abdomen soft, non-tender, nondistended. MUSCULOSKELETAL: No cyanosis, or edema. BACK: Nontender without obvious deformity. No CVA tenderness. A/P Assessment and Plan //Severe spinal stenosis CT done at outside hospital shows spinal stenosis at L4-5 and L5-S1 by CT Neurosurgery consulted, appreciate assistance = MRI lumbar spine with L4-L5 5 disc bulge with L4 nerve root impingement. Possible neurosurgery as per neurosurgical service. In view of midnight. //Chronic kidney disease stage IV BUN/creatinine 59/3.41 Patient seen by his mail list processor, Dr. Abebe at the [facility], earlier this week who stated his renal function was stable Monitor renal function = Creatinine stable at 3.45. Nephrology following. Appreciate assistance. // Diabetes mellitus Home Levemir on hold as patient nothing by mouth and has a blood glucose of 145 Sliding scale insulin Monitor blood glucose // Hypertension/hyperlipidemia Continue home medications FEN Nothing by mouth Electrolytes: Monitor and replete when necessary NS at 100 cc/hr Holding pharmacologic anticoagulation for possible operative intervention Discharge Planning likely neurosurgery. PT, OT following. Naif Valenzuela MD Oct 08, 2017 22:14
[2017-10-09] VITALS (7 sets, daily range): BP systolic 108–154; BP diastolic 75–93; PULSE 83–100; RESP 15–19; TEMP 96.5–98.8; O2SAT 93–97
[2017-10-09] MEDS: SODIUM CHLOR 0.9% 1000 ML INJ 1,000 ML IV SCH ×2 (04:30→19:30)
[2017-10-09] MEDS: ACETAMINOPHEN/HYDROcodone 325 MG/10 MG TAB PO PRN ×3 (04:58→12:06)
[2017-10-09] MEDS: CALCIUM ACETATE 667 MG CAP PO SCH ×3 (08:56→18:00)
[2017-10-09] MEDS: FERROUS SULFATE 325 MG (65 MG ELEMENTAL IRON) TAB PO SCH (08:57)
[2017-10-09] MEDS: CARVEDILOL 3.125 MG TAB PO SCH ×2 (08:57→21:00)
[2017-10-09] MEDS: hydrALAZINE HCL 25 MG TAB PO SCH ×3 (08:57→19:00)
[2017-10-09] MEDS: ALLOPURINOL 100 MG TAB PO SCH (08:58)
[2017-10-09] MEDS: cloNIDine HCL 0.1 MG TAB PO SCH ×2 (08:58→21:00)
[2017-10-09] MEDS: INSULIN ASPART SUPPLEMENTAL SCALE SQ SCH ×4 (08:59→21:00)
[2017-10-09] MEDS ORDERED: BUPIVACAINE/EPINEPHRINE 0.5% 50 ML VIAL ONE (11:19)
[2017-10-09] MEDS ORDERED: GELFOAM SIZE 100 ONE (11:20)
[2017-10-09] MEDS ORDERED: GENTAMICIN SULFATE 80 MG/2 ML VIAL ONE (11:20)
[2017-10-09] MEDS ORDERED: THROMBIN (TOPICAL) 5,000 UNIT VIAL ONE (11:40)
[2017-10-09] MEDS ORDERED: GLYCOPYRROLATE 1 MG/5 ML SYRINGE IV PUSH ONE (12:00)
[2017-10-09] MEDS ORDERED: PHENYLEPHRINE HCL 10 MG/ML VIAL IV ONE (12:00)
[2017-10-09] MEDS ORDERED: PHENYLEPH/NS 1000 MCG/10 ML SYR IV ONE (12:00)
[2017-10-09] MEDS ORDERED: NEOSTIGMINE 5 MG/5 ML SYRINGE IV PUSH ONE (12:00)
[2017-10-09] MEDS ORDERED: DEXAMETHASONE SOD PHOS 4 MG/ML VIAL IV ONE (12:00)
[2017-10-09] MEDS ORDERED: ceFAZolin INJ 1,000 MG VIAL IV ONE ×2 (12:00→16:38)
[2017-10-09] MEDS ORDERED: DOCUSATE SODIUM 50 MG/SENNA 8.6 MG TAB PO ONE (12:00)
[2017-10-09] MEDS ORDERED: ROCURONIUM INJ 50 MG/5 ML SYRINGE IV PUSH ONE (12:00)
[2017-10-09] MEDS ORDERED: SODIUM CHLORID 0.9% 500 ML INJ 1,000 ML IV ONE (12:00)
[2017-10-09] MEDS ORDERED: ePHEDrine/NS 25 MG/5 ML SYRINGE IV ONE (12:00)
[2017-10-09] MEDS ORDERED: LIDOCAINE HCL 1% PF 5 ML SYRINGE OTHER ONE (12:00)
[2017-10-09] MEDS ORDERED: PROPOFOL 200 MG/20 ML AMP IV ONE (12:00)
[2017-10-09] MEDS ORDERED: ONDANSETRON HCL 4 MG/2 ML VIAL IV ONE (12:00)
--- NOTE | 2017-10-09 12:24 | HHI.NPPN ---
Subjective General Problems: Anemia, Edema, Hypertension Renal Failure: Stage IV History of Present Illness 67-year-old male known to me from before. He was seen by me in the office a few years ago with a past medical history of diabetes mellitus, hypertension, chronic kidney disease stage IV and hyperlipidemia. He came to the hospital with a complaint of back pain and weakness in the leg. I was called to see the patient because of elevated BUN and creatinine. Additional Remarks Patient is alert, no SOB, now NPO, still has back pain. Review of Systems General Constitutional: Fatigue Cardiovascular Cardiac: NG Objective Data Data Vital Signs Date Time Temp Pulse Resp B/P (MAP) Pulse Ox O2 Delivery O2 Flow Rate FiO2 10/09/17 11:38 98.7 84 19 108/75 (86) 95 10/09/17 08:00 98.8 83 19 151/93 (112) 95 10/09/17 04:00 96.5 87 15 146/90 (108) 95 10/09/17 00:00 98.0 96 16 154/92 (112) 94 10/08/17 20:06 97.3 103 16 154/90 (111) 95 10/08/17 18:40 106 10/08/17 16:40 97.3 91 16 151/94 (113) 95 -: 10/07/17 1730 10/08/17 0953 Physical Exam General Appearance: No Acute Distress, Comfortable Eyes Eye Exam: Pupils Equal Pulmonary Resp Exam: Breath Sounds Equal, No Distress, Rhonchi, Decreased Bases Cardiology CV Exam: Regular, Normal Sinus Rhythm Gastrointestinal/Abdomen GI Exam: Soft, Non-Tender, Bowel Sounds Present, Distended Extremeties Extremities Exam: Trace Edema Neurologic Neuro Exam: Alert, Awake, Oriented Psychiatric Psych Exam: Appropriate Responses Assessment/Plan Assessment Summary: Anemia of CKD, Hypertension, Diabetes Mellitus, CKD Stage IV Problem List: (1) Stage 4 chronic kidney disease ICD Codes: N18.4 - Chronic kidney disease, stage 4 (severe) (2) Hypertension ICD Codes: I10 - Essential (primary) hypertension (3) Diabetes mellitus ICD Codes: E11.9 - Type 2 diabetes mellitus without complications (4) Weakness ICD Codes: R53.1 - Weakness Status: Acute (5) Stenosis of lumbosacral spine ICD Codes: M48.07 - Spinal stenosis, lumbosacral region Status: Acute Plan Patient has stage 4 chronic kidney disease. Has Proteinuria, Renal U/S noted. Most likely has chronic kidney disease due to Hypertensive or Diabetic renal disease. Creatinine was stable. BP is controlled,. Now NPO for back surgery. Avoid Nephrotoxins, follow the BMP. If D/C, he will follow at [place]. Maryuri Saldaña MD Oct 09, 2017 12:24
[2017-10-09] MEDS ORDERED: ACETAMINOPHEN 1000 MG/100 ML 100 ML IV ONE (15:09)
[2017-10-09] MEDS ORDERED: ARTIFICIAL TEARS OPTH OINT 3.5 APPLIC/3.5 GM TUBO ONE (15:09)
[2017-10-09] MEDS ORDERED: ONDANSETRON HCL 4 MG/2 ML VIAL ONE (15:13)
[2017-10-09] MEDS ORDERED: ACETAMINOPHEN 325 MG TAB PO PRN (15:30)
[2017-10-09] MEDS ORDERED: GLUCAGON 1 MG/ML VIAL OTHER PRN (15:30)
[2017-10-09] MEDS ORDERED: ACETAMINOPHEN/HYDROcodone 325 MG/10 MG TAB PO PRN (15:30)
[2017-10-09] MEDS ORDERED: ONDANSETRON HCL 4 MG/2 ML VIAL IV PUSH ONE (15:30)
[2017-10-09] MEDS ORDERED: DEXTROSE 50% IN WATER 50 ML VIAL(D50) IV PUSH PRN (15:30)
--- NOTE | 2017-10-09 15:58 | OTSOAPIP ---
TIME SESSION COMPLETED: 1404 RECEIVED OCCUPATIONAL THERAPY ORDERS FROM DR. MORA. REVIEWED ELECTRONIC MEDICAL RECORD. ATTEMPTED TO SEE PATIENT FOR EVALUATION, HOWEVER PATIENT IS OFF FLOOR FOR SURGERY. WILL FOLLOW UP WITH PATIENT NEXT DAY. INTERDISCIPLINARY COMMUNICATION: REVIEWED ELECTRONIC MEDICAL RECORD Therapist: Sandra Calloway OTR/L Signature on file
[2017-10-09] MEDS ORDERED: methylPREDNISolone ACETATE 40 MG/ML VIAL ONE (16:22)
--- NOTE | 2017-10-09 17:00 | PD.CONS ---
[facility] Service Critical Care Medicine Consult Requested By Dr. Guaman Reason for Consult Postop management Primary Care Physician [facility] History of Present Illness 67-year-old gentleman with history of CKD stage IV, hypertension, diabetes, hyperlipidemia, now admitted for progressive lower extremity weakness on 10/07. Patient was recently diagnosed approximately a week ago at outside hospital with severe L4-L5 and L5-S1 spinal stenosis. Here he was evaluated by neurosurgery and due to his progressive weakness associated with pain, tingling , numbness patient underwent surgical decompression with a left L4-5 hemilaminectomy, mesoofacetectomy, foraminotomy with microsurgical resection of the disk. Patient is being admitted to the ICU post surgery and CCM consult is requested for management of his chronic medical conditions. Past Family Social History Allergies: Coded Allergies: No Known Allergies (Verified Allergy, Mild, 10/07/17) Past Medical History Diabetes Hypertension Hyperlipidemia CKD Past Surgical History Cervical fusion Appendectomy Reported Medications Reported Meds & Active Scripts Active Reported Metolazone 10 Mg Tab 10 Mg PO DAILY Clopidogrel (Clopidogrel Bisulfate) 75 Mg Tab 75 Mg PO DAILY Allopurinol 300 Mg Tab 300 Mg PO DAILY Furosemide 20 Mg Tab 20 Mg PO DAILY Aspirin EC (Aspirin) 81 Mg Tabdr 81 Mg PO DAILY Carvedilol 6.25 Mg Tab 3.125 Mg PO BID Clonidine (Clonidine HCl) 0.1 Mg Tab 0.1 Mg PO BID Amlodipine (Amlodipine Besylate) 10 Mg Tab 10 Mg PO DAILY Atorvastatin (Atorvastatin Calcium) 80 Mg Tab 80 Mg PO HS Hydralazine HCl 25 Mg Tablet 25 Mg PO TID Centrum (Multiple Vitamins W/ Minerals) 1 Chew 1 Tab CHEW DAILY Vitamin D3 (Cholecalciferol) 1,000 Unit Cap 2,000 Units PO DAILY Ferrous Sulfate DR (Ferrous Sulfate) 324 Mg Tabdr 324 Mg PO DAILY Calcium Acetate (Phosphate Binder) 667 Mg Tab 667 Mg PO TID Novolog Flexpen Inj (Insulin Aspart) 300 Unit/3 Ml Pen 1 Units SQ TIDAC Lantus Inj (Insulin Glargine) 1,000 Unit/10 Ml Vial 70 Units SQ HS Active Ordered Medications Current Medications Medications (Trade) Dose Ordered Sig/Matthew Route Start Time Stop Time Status Last Admin (Norvasc) 10 mg DAILY PO 10/08/17 09:00 10/09/17 08:57 (Lipitor) 80 mg HS PO 10/07/17 21:00 10/08/17 20:30 (Phoslo) 667 mg TID PO 10/08/17 09:00 10/08/17 17:40 (Coreg) 3.125 mg BID PO 10/07/17 21:15 10/09/17 08:57 (Catapres) 0.1 mg BID PO 10/07/17 21:00 10/09/17 08:58 (Plavix) 75 mg DAILY PO 10/08/17 09:00 Future Hold (Apresoline) 25 mg TID PO 10/08/17 09:00 10/09/17 12:05 (Levemir Inj) 70 units HS SQ 10/07/17 21:15 Future Hold (Ferrous Sulfate) 325 mg DAILY PO 10/08/17 09:00 10/09/17 08:57 (Zyloprim) 200 mg DAILY PO 10/08/17 09:00 10/09/17 08:58 Sodium Chloride 1,000 ml @ 100 mls/hr Q10H IV 10/07/17 22:30 10/08/17 17:57 Sodium Chloride 500 ml @ 30 mls/hr [id number] PRN IV 10/07/17 23:15 10/10/17 23:14 (Betadine 5% Antisepsis Kit) 1 applic TACTICAL DEBRIEFER OFFICER PRN EACH NARE 10/07/17 23:15 10/10/17 23:14 (Chlorhexidine 2% Cloth) 3 pack TACTICAL DEBRIEFER OFFICER PRN TOPICAL 10/07/17 23:15 10/10/17 23:14 (Hibiclens 4% Top Soln) 1 applic HS TOP 10/08/17 21:00 10/09/17 21:01 10/08/17 22:05 Cefazolin Sodium/ Dextrose 50 ml @ 100 mls/hr Q8H IV 10/09/17 15:30 10/10/17 07:59 UNV (Colace) 100 mg BID PO 10/09/17 21:00 (Protonix) 40 mg DAILY PO 10/10/17 09:00 ([place] 10-325 Mg) 1 tab Q4H PRN PO 10/09/17 15:30 ([place] 10-325 Mg) 2 tab Q4H PRN PO 10/09/17 15:30 (Morphine Inj) 2 mg Q2H PRN IV PUSH 2/23/18 15:30 (Morphine Inj) 4 mg Q2H PRN IV PUSH 10/09/17 15:30 (Tylenol) 650 mg Q4H PRN PO 10/09/17 15:30 (D50w (Vial) Inj) 50 ml UNSCH PRN IV PUSH 10/09/17 15:30 (Glucagon Inj) 1 mg UNSCH PRN OTHER 10/09/17 15:30 (NovoLOG SUPPLEMENTAL SCALE) 1 ACHS SLIDING SCALE SQ 10/09/17 17:00 (Ancef Inj) 2,000 mg ONCE ONCE IV 10/09/17 16:38 10/09/17 16:39 UNV Family History Noncontributory Social History Remote history of smoking, rare alcohol, no drugs Physical Exam Vital Signs Vital Signs Date Time Temp Pulse Resp B/P (MAP) Pulse Ox O2 Delivery O2 Flow Rate FiO2 10/09/17 11:38 98.7 84 19 108/75 (86) 95 10/09/17 08:00 98.8 83 19 151/93 (112) 95 10/09/17 08:00 91 10/09/17 04:00 96.5 87 15 146/90 (108) 95 10/09/17 00:00 98.0 96 16 154/92 (112) 94 10/08/17 20:06 97.3 103 16 154/90 (111) 95 10/08/17 18:40 106 Physical Exam General -elderly gentleman awake alert in no acute distress HEENT - pupils equal, reactive, sclerae anicteric, neck supple, no nuchal rigidity, neck veins not distended, no carotid bruit CV - regular S1, S2, no murmurs Chest - clear b/l, good air entry, no wheezes Abdomen - soft, non-tender, non-distended, BS present, no hepatomegaly, no splenomegaly Skin - no rashes, no cyanosis Extremities - warm and well perfused, no edema, + peripheral pulses, no clubbing Neuro - Laboratory GENERAL: Well-nourished, well-developed patient. Elderly gentleman in no acute distress comfortable on facemask CPAP SKIN: Warm and dry. HEAD: Normocephalic. EYES: No scleral icterus. No injection or drainage. NECK: Supple, trachea midline. No JVD or lymphadenopathy. CARDIOVASCULAR: Regular rate and rhythm without murmurs, gallops, or rubs. RESPIRATORY: Breath sounds equal bilaterally. No accessory muscle use. GASTROINTESTINAL: Abdomen soft, non-tender, nondistended. MUSCULOSKELETAL: No cyanosis, or edema. BACK: Nontender without obvious deformity. NEURO EXAM: Muscle testing reveals normal bulk and tone overall without rigidity, spasticity , fasciculations, or atrophy. Muscle strength is 5/5 in all muscle groups of both upper extremities including deltoid, biceps, triceps, brachioradialis, wrist extension and home health lpn. In the lower extremities, strength is 5/5 in his right iliopsoas with 4/5 on the left due to give away, 5/5 right quadriceps with 3/5 on the left with give away, 5/5 right hamstrings, 5/5 plantar flexion, dorsiflexion, and extensor hallicus longus are 5/5 on the right with 2/5 on the left. Sensory examination is diffusely decreased in his left lower extremity, otherwise intact to light touch and sharp/dull discrimination Deep tendon reflexes are 1+ and symmetrical in the biceps, triceps, and brachioradialis, bilaterally, in the upper extremities. In the lower extremities , the patellar and Achilles are trace, bilaterally. There is a bilateral plantar flexion response. Hoffmanns sign is negative. There is no clonus or other abnormal reflexes noted. Cerebellar examination is intact to [id number] test, rapid rhythmic alternating motion. There is no dysmetria, dysdiadochokinesia, truncal ataxia, or tremor. Result Diagram: 10/07/17 1730 10/08/17 0953 Imaging Last Impressions Lumbar Spine MRI 10/08/17 0941 Signed Impressions: Service Date/Time: September 12:01 - CONCLUSION: 1. At L4- 5 is a broad based disc bulge with extrusion on the left side laterally impinging on the left L4 nerve root. Mild right-sided foraminal stenosis as well. Mild central canal stenosis. 2. Normal alignment of the lumbar spine. Conus medullaris is intact. No acute fracture. Sukhjinder Atkins MD Thoracic Spine MRI 10/08/17 0000 Signed Impressions: Service Date/Time: September 12:01 - CONCLUSION: 1. No acute fracture or spondylolisthesis. No cord signal abnormalities. Facet hypertrophic changes as above encroaching on the lateral recesses but without significant central canal stenosis. No direct nerve root compression no discrete disc protrusions. Sukhjinder Atkins MD Renal Ultrasound 10/08/17 0000 Signed Impressions: Service Date/Time: September 15:15 - CONCLUSION: 1. Medical renal disease without obstruction. 2. Bilateral simple renal cysts. David Little Jr., MD Lumbar Spine X-Ray 10/08/17 0000 Signed Impressions: Service Date/Time: September 11:24 - CONCLUSION: Almost no flexion or extension elicited Albino Christiansen MD Assessment and Plan Assessment and Plan Severe spinal stenosis - Status post Left L4-5 decompressive hemilaminectomy, mesiofacetectomy, foraminotomy, microsurgical resection of the disk - Further management per Neurosurgery KATIE - CPAP per home regimen Chronic kidney disease stage IV - Monitor I's and O - Monitor electrolytes and creatinine levels - Follow-up as an outpatient by patient's intel recruiter, Dr. Abebe at the [facility], Diabetes mellitus - Resume home Levemir - Sliding scale insulin - Monitor blood glucose Hypertension - Continue Norvasc, hydralazine, Coreg Hyperlipidemia - Continue home medications DVT GI prophylaxis - Teds SCDs - Pharmacological DVT prophylaxis per neurosurgery - Protonix Critical Care: The total critical care time was 35 minutes. Time to perform other separately billable procedures was not included in the critical care time. Leno Valadez MD Oct 09, 2017 5:00 pm Marlon Arana MD Oct 09, 2017 11:33 pm
[2017-10-09] MEDS ORDERED: ceFAZolin 2 GM PREMIX 50 ML IV SCH (18:00)
[2017-10-09] MEDS ORDERED: DO NOT ADM ANY ANTICOAGULANT DRUGS PRN (18:30)
--- NOTE | 2017-10-09 18:31 | PD.OP ---
Operative Report Date of Surgery: Oct 09, 2017 Preoperative Diagnosis: Lumbar spinal stenosis Postoperative Diagnosis: Lumbar spinal stenosis Procedure: Left L4-5 decompressive hemilaminectomy, mesiofacetectomy, foraminotomy, microsurgical resection of the disk Anesthesia: general Surgeon: Mikey Guaman Business Account Manager(s): Beverley Cordova Operation and Findings: INDICATIONS FOR THE SURGICAL PROCEDURE Mr Leonard is a 67 year-old male who presented with intractable back pain and clinical evidence of left L4 and L5 lower extremity radiculopathy, with progressive weakness in his left foot. He was found to have severe lumbar spinal stenosis at L4-5 with significant mass effect on the neural structures, which correlated with the clinical symptoms. He failed nonsurgical management. He developed sebere weakness in his left foot, which was progressing to a foot drop. A surgical decompression was indicated as a last resort. The [id number] details of the procedure, indications, alternatives, risks and potential complications were fully discussed with the patient. The patient fully understood. All the questions were answered. No guarantees were given. The patient voiced requesting the procedure and provided informed consents. The patient was offered the alternative of delaying the procedure and continuing with nonsurgical management. DETAILS OF THE SURGICAL PROCEDURE After the induction of general anesthesia, endotracheal intubation was performed. A Cuevas catheter, bilateral MOHINDER hose and sequential compression devices were placed and kept throughout the procedure. The patient was positioned prone on a Mike table over a Noah frame. All pressure points were carefully padded with eggcrate mattress. The eyes were tapped shut after ointment was applied by the anesthesiologist to prevent corneal abrasion. A Anup hugger was placed over the exposed lower body to maintain control of the core body temperature. The lower lumbar region was prepped and draped in the usual sterile fashion. A spinal needle was placed for localization and an x- ray performed with a C-arm. A skin incision was made in the midline over the spinous processes L4-L5 with a #10 blade. Small subcutaneous bleeders were controlled with a bipolar and the dissection was carried out through the lumbar fascia exposing the spinous processes. A subperiostial dissection was performed with a Leiva elevator and a Bovie over the L4-L5 spinous process lamina and facets. A microdiscectomy self- retaining retractor was placed on the incision and an x-ray was obtained with an instrument placed underneath the lamina of L4. At this point in the procedure the operating microscope was draped in the usual sterile fashion and brought to the field. The rest of the surgical procedure was performed using microsurgical dissection technique with exception of the closure. Once the level was confirmed, a left5 decompressive laminectomy was performed at L4-L5 using the TPS drill with an 4mm drill bit. A medial facetectomy was performed and the superior free border of the ligamentum flavum was dissected with a ligament dissector and removed with a thin footplate 2 mm Kerrison. The medial facetectomy was done and the L5 nerve root was identified and followed towards its exit in the foramen. Epidural veins located laterally to the dural sac were coagulated with a bipolar and incised with microscissors. Gentle medial retraction of the dural sac allowed inspection of the disc space. The patient had severe facet arthropathy with hypertrhopy of the joint facets and ligamentum flavum resulting in mass effect over the dural sac and nerve roots. In addition, there was a broad-based disc herniation, contributing to the stenosis. The annulus fibrosus of the disc was coagulated with the bipolar and incised with an 11 blade. The extruded disc was carefully dissected from the surrounding tissue and removed with pituitary forceps. Then, a microdiscectomy was carried out in the standard fashion using straight and up-biting pituitary forceps. A good decompression of the dural sac and nerve root was achieved. The exit of the nerve root was inspected for residual disc fragments and hemostasis was secured with the bipolar. At the undersurface of the disk space the dura was very thin, and a CSF leak was noted. This was sutured with 6-0 Prolene, and the suture reinforced using Duraseal. The incision was irrigated with a large amount of saline solution. A Valsalva maneuver failed to show any cerebrospinal fluid leak or bleeding. The decompression was assessed again and found to be satisfactory. The incision was then closed in layers. The fascia was closed with 0 Vicryl sutures in an interrupted fashion. The superficial fascia was closed with 0 Vicryl sutures. The fascia was infiltrated with 0.5% Marcaine with epinephrine 1:100,000 dilution. The subcutaneous tissue was irrigated then closed with 3-0 Vicryl. The skin was closed with running locking 3-0 Ethylon sutures. A sterile dressing was applied. At the end of the procedure, the sponge, needle and instrument counts were all correct. Estimated blood loss was less than 100 cc. No blood transfusion was given. No intraoperative complications occurred. The patient received prophylactic antibiotics. The patient was then extubated and transferred to the recovery room in stable condition. Mikey Guaman MD Oct 09, 2017 18:31
[2017-10-09] MEDS ORDERED: MIDAZOLAM HCL 2 MG/2 ML VIAL ONE (18:45)
[2017-10-09] MEDS ORDERED: *PROMETHAZINE 25 MG/ML VIAL PERIprocedural use ONLY ONE (18:53)
[2017-10-09] MEDS ORDERED: *LABETALOL HCL 100 MG/20 ML VIAL PERIprocedural Use ONLY ONE (19:11)
--- NOTE | 2017-10-09 19:14 | RADRPT ---
EXAM DATE/TIME: 10/09/2017 16:24 [place] COMPARISON: No previous studies available for comparison. INDICATIONS : Level Localization L4,L5. MEDICAL HISTORY : Diabetes mellitus type 2. Renal insufficiency. SURGICAL HISTORY : Fusion, cervical. Appendectomy. ENCOUNTER: Subsequent ACUITY: 2 days PAIN SCORE: Non-responsive. LOCATION: Lumbar spine. FINDINGS: Single intraoperative fluoroscopic image of the lower lumbar spine. Assuming 5 lumbar vertebral km s, the radiopaque markers are at the L5 level projecting near the L4-5 facet. Vertebral body heights are intact. CONCLUSION: 1. Radiopaque markers at L5 level, as above. Timbo Harris MD on October 09, 2017 at 19:12 Board Certified Radiologist. This report was verified electronically.
[2017-10-09] MEDS: DOCUSATE SODIUM 100 MG CAP PO SCH (21:00)
[2017-10-09] MEDS: ATORVASTATIN 80 MG TAB PO SCH (21:00)
[2017-10-09] MEDS: MORPHINE SULFATE 4 MG/ML INJ IV PUSH PRN (22:03)
[2017-10-09] MEDS: ceFAZolin 2 GM PREMIX 50 ML IV SCH (23:16)
--- NOTE | 2017-10-09 23:58 | HHI.PR ---
Subjective Remarks patient seen this morning. Awaiting surgery. Denies any chest pain or shortness breath. Objective Vital Signs Date Time Temp Pulse Resp B/P (MAP) Pulse Ox O2 Delivery O2 Flow Rate FiO2 10/09/17 22:18 97 Nasal Cannula 10/09/17 22:00 98.2 96 17 152/88 (109) 93 10/09/17 21:00 99 20 160/95 (116) 96 Nasal Cannula 4 10/09/17 20:00 90 16 161/90 (113) 96 Nasal Cannula 4 10/09/17 19:30 84 16 165/88 (113) 96 Nasal Cannula 4 10/09/17 19:15 84 14 170/85 (113) 96 Nasal Cannula 4 10/09/17 19:00 92 16 178/96 (123) 96 Nasal Cannula 4 10/09/17 18:45 100 15 166/74 (104) 95 Nasal Cannula 4 10/09/17 18:32 98.2 101 17 145/78 (100) 98 Nasal Cannula 4 10/09/17 11:38 98.7 84 19 108/75 (86) 95 10/09/17 08:00 98.8 83 19 151/93 (112) 95 10/09/17 08:00 91 10/09/17 04:00 96.5 87 15 146/90 (108) 95 10/09/17 00:00 98.0 96 16 154/92 (112) 94 I/O 10/09/17 10/09/17 10/09/17 10/10/17 10/10/17 10/10/17 07:00 15:00 23:00 07:00 15:00 23:00 Intake Total 0 ml 850 ml Output Total 100 ml Balance 0 ml 750 ml Intake Oral 0 ml 50 ml Other 800 ml Output Estimated Blood Loss 100 ml # Voids 1 3 Result Diagram: 10/07/17 1730 10/08/17 0953 Objective Remarks GENERAL: patient sitting up in bed. Appears comfortable.no change on exam SKIN: Warm and dry. HEAD: Normocephalic. EYES: No scleral icterus. No injection or drainage. NECK: Supple, trachea midline. No JVD. CARDIOVASCULAR: Regular rate and rhythm without murmurs, gallops, or rubs. RESPIRATORY: Breath sounds equal bilaterally. No accessory muscle use. GASTROINTESTINAL: Abdomen soft, non-tender, nondistended. MUSCULOSKELETAL: No cyanosis, or edema. BACK: Nontender without obvious deformity. No CVA tenderness. A/P Assessment and Plan //Severe spinal stenosis CT done at outside hospital shows spinal stenosis at L4-5 and L5-S1 by CT Neurosurgery consulted, appreciate assistance = MRI lumbar spine with L4-L5 5 disc bulge with L4 nerve root impingement. Possible neurosurgery as per neurosurgical service. =surgery 10/09. //Chronic kidney disease stage IV BUN/creatinine 59/3.41 Patient seen by his consulting practice manager, Dr. Abebe at the [facility], earlier this week who stated his renal function was stable Monitor renal function = Creatinine stable at 3.45. Nephrology following. Appreciate assistance. // Diabetes mellitus Home Levemir on hold as patient nothing by mouth and has a blood glucose of 145 Sliding scale insulin Monitor blood glucose // Hypertension/hyperlipidemia Continue home medications FEN Nothing by mouth Electrolytes: Monitor and replete when necessary NS at 100 cc/hr Holding pharmacologic anticoagulation for possible operative intervention Discharge Planning likely neurosurgery. PT, OT following. Naif Valenzuela MD Oct 09, 2017 23:58
[2017-10-10] VITALS (10 sets, daily range): BP systolic 142–163; BP diastolic 84–95; PULSE 90–110; RESP 12–19; TEMP 96.6–98.8; O2SAT 91–98
[2017-10-10] MEDS: ACETAMINOPHEN/HYDROcodone 325 MG/10 MG TAB PO PRN ×3 (04:52→20:31)
--- NOTE | 2017-10-10 07:35 | HHI.NSPN ---
History Chief Complaint: mild paresthesias bottom left foot. Interval History This is a 67-year-old male with history of chronic kidney disease stage IV, diabetes mellitus, hypertension and hyperlipidemia, who presents the emergency department for evaluation of left lower extremity weakness. He reports that approximately one month ago he began having left lower extremity weakness and numbness/tingling. He has been falling. He was seen in the hospital last week in [place] where he was found to have severe spinal stenosis at L4-L5 and L5-S1 and reportedly sent to my office. He denies any bowel or bladder incontinence. Hde developed inability to raise his left lower extremity. He has associated pain/numbness/tingling. Denies chest pain or shortness of breath. Denies nausea/vomiting. He has been uin a wheelchair, unable to ambulate for the past 4 days. Neurosurgical consultation was requested. 10/10/17: Pt awake and alert. Denies much pain. Mild paresthesias on the bottom of his left foot. No radiculopathy in LEs. Pt is on Bedrest per Dr. Guaman for CSF leak. Review of Systems General: Negative for: fever, chills, insomnia Respiratory: Negative for: shortness of breath, cough, sputum Cardiovascular: Negative for: chest pain Gastrointestinal: Negative for: nausea, vomitting, diarrhea, constipation Exam Results Vital Signs Date Time Temp Pulse Resp B/P (MAP) Pulse Ox O2 Delivery O2 Flow Rate FiO2 10/10/17 06:00 95 10/10/17 04:00 98.3 13 158/84 (108) 98 10/09/17 22:18 Nasal Cannula 10/09/17 21:00 4 Intake and Output 10/10/17 10/10/17 10/11/17 08:00 16:00 00:00 Output Total 1000 ml Balance -1000 ml Physical Examination General: Pt resting comfortably in bed. Resp: CTA bilaterally Heart: NSR no murmurs Abd: Soft positive bs. Obese. Skin: No cyanosis or erythema. SCDs in place. Muscle: Moves LEs with good strength in bed. Neuro: Pt awake and alert. Follows commands well. Speech clear and appropriate. Lab, Micro, Other Results Last Impressions Lumbar Spine X-Ray 10/09/17 0000 Signed Impressions: Service Date/Time: Monday, October 09, 2017 16:24 - CONCLUSION: 1. Radiopaque markers at L5 level, as above. Timbo Harris MD Lumbar Spine MRI 10/08/17 0941 Signed Impressions: Service Date/Time: September 12:01 - CONCLUSION: 1. At L4- 5 is a broad based disc bulge with extrusion on the left side laterally impinging on the left L4 nerve root. Mild right-sided foraminal stenosis as well. Mild central canal stenosis. 2. Normal alignment of the lumbar spine. Conus medullaris is intact. No acute fracture. Sukhjinder Atkins MD Thoracic Spine MRI 10/08/17 0000 Signed Impressions: Service Date/Time: September 12:01 - CONCLUSION: 1. No acute fracture or spondylolisthesis. No cord signal abnormalities. Facet hypertrophic changes as above encroaching on the lateral recesses but without significant central canal stenosis. No direct nerve root compression no discrete disc protrusions. Sukhjinder Atkins MD Renal Ultrasound 10/08/17 0000 Signed Impressions: Service Date/Time: September 15:15 - CONCLUSION: 1. Medical renal disease without obstruction. 2. Bilateral simple renal cysts. David Little Jr., MD Medical Decision Making Impression and Plan A: 67 y/o M s/p L4/L5 laminectomy with microdiscectomy CSF leak P: continue with bedrest per Dr. Guaman until Thursday Continue to move LEs in bed. Rotate to sides q 2 hours to avoid pressure to incision. Advance diet to 1800 ADA diet. Doni Santoyo Oct 10, 2017 7:35 am
[2017-10-10] MEDS: INSULIN ASPART SUPPLEMENTAL SCALE SQ SCH ×4 (08:00→20:31)
[2017-10-10] MEDS: ceFAZolin 2 GM PREMIX 50 ML IV SCH ×2 (08:01→15:56)
[2017-10-10] MEDS: CARVEDILOL 3.125 MG TAB PO SCH ×2 (08:02→20:30)
[2017-10-10] MEDS: ALLOPURINOL 100 MG TAB PO SCH (08:02)
[2017-10-10] MEDS: DOCUSATE SODIUM 100 MG CAP PO SCH ×2 (08:02→20:30)
[2017-10-10] MEDS: cloNIDine HCL 0.1 MG TAB PO SCH ×2 (08:02→20:30)
[2017-10-10] MEDS: FERROUS SULFATE 325 MG (65 MG ELEMENTAL IRON) TAB PO SCH (08:02)
[2017-10-10] MEDS: hydrALAZINE HCL 25 MG TAB PO SCH ×3 (08:02→17:15)
[2017-10-10] MEDS: CALCIUM ACETATE 667 MG CAP PO SCH ×3 (08:02→17:16)
[2017-10-10] MEDS: PANTOPRAZOLE SOD 40 MG DELAYED RELEASE TAB PO SCH (08:02)
[2017-10-10] MEDS: SODIUM CHLOR 0.9% 1000 ML INJ 1,000 ML IV SCH ×2 (12:14→20:30)
--- NOTE | 2017-10-10 14:10 | HHI.PR ---
Subjective Remarks Follow-up for severe spinal stenosis. Patient is currently doing well. Status post decompressive hemilaminectomy L4-L5. Denies any chest pain, shortness of breath, fever or chills. Objective Vitals Vital Signs Date Time Temp Pulse Resp B/P (MAP) Pulse Ox O2 Delivery O2 Flow Rate FiO2 10/10/17 12:00 97.8 92 18 142/86 (104) 96 10/10/17 08:00 98.0 96 12 159/84 (109) 94 10/10/17 08:00 94 Nasal Cannula 1.50 10/10/17 08:00 95 10/10/17 06:00 95 10/10/17 04:00 98.3 90 13 158/84 (108) 98 10/10/17 04:00 90 10/10/17 02:00 95 10/10/17 00:00 98.6 93 15 163/91 (115) 95 10/09/17 23:00 100 10/09/17 22:18 97 Nasal Cannula 10/09/17 22:00 92 10/09/17 22:00 98.2 96 17 152/88 (109) 93 10/09/17 21:00 99 20 160/95 (116) 96 Nasal Cannula 4 10/09/17 20:00 90 16 161/90 (113) 96 Nasal Cannula 4 10/09/17 19:30 84 16 165/88 (113) 96 Nasal Cannula 4 10/09/17 19:15 84 14 170/85 (113) 96 Nasal Cannula 4 10/09/17 19:00 92 16 178/96 (123) 96 Nasal Cannula 4 10/09/17 18:45 100 15 166/74 (104) 95 Nasal Cannula 4 10/09/17 18:32 98.2 101 17 145/78 (100) 98 Nasal Cannula 4 I/O 10/09/17 10/09/17 10/09/17 10/10/17 10/10/17 10/10/17 07:00 15:00 23:00 07:00 15:00 23:00 Intake Total 0 ml 850 ml Output Total 100 ml 1000 ml Balance 0 ml 750 ml -1000 ml Intake Oral 0 ml 50 ml Other 800 ml Output Urine Total 1000 ml Estimated Blood Loss 100 ml # Voids 1 3 Result Diagram: 10/07/17 1730 10/08/17 0953 Imaging Last Impressions Lumbar Spine X-Ray 10/09/17 0000 Signed Impressions: Service Date/Time: Monday, October 09, 2017 16:24 - CONCLUSION: 1. Radiopaque markers at L5 level, as above. Timbo Harris MD Lumbar Spine MRI 10/08/17 0941 Signed Impressions: Service Date/Time: September 12:01 - CONCLUSION: 1. At L4- 5 is a broad based disc bulge with extrusion on the left side laterally impinging on the left L4 nerve root. Mild right-sided foraminal stenosis as well. Mild central canal stenosis. 2. Normal alignment of the lumbar spine. Conus medullaris is intact. No acute fracture. Sukhjinder Atkins MD Thoracic Spine MRI 10/08/17 0000 Signed Impressions: Service Date/Time: September 12:01 - CONCLUSION: 1. No acute fracture or spondylolisthesis. No cord signal abnormalities. Facet hypertrophic changes as above encroaching on the lateral recesses but without significant central canal stenosis. No direct nerve root compression no discrete disc protrusions. Sukhjinder Atkins MD Renal Ultrasound 10/08/17 0000 Signed Impressions: Service Date/Time: September 15:15 - CONCLUSION: 1. Medical renal disease without obstruction. 2. Bilateral simple renal cysts. David Little Jr., MD Objective Remarks GENERAL: Alert, NAD. SKIN: Warm and dry. HEAD: Normocephalic. EYES: No scleral icterus. No injection or drainage. NECK: Supple, trachea midline. No JVD or lymphadenopathy. CARDIOVASCULAR: Regular rate and rhythm without murmurs, gallops, or rubs. RESPIRATORY: Breath sounds equal bilaterally. No accessory muscle use. GASTROINTESTINAL: Abdomen soft, non-tender, nondistended. MUSCULOSKELETAL: No cyanosis, or edema. Able to move lower extremities well. BACK: Nontender without obvious deformity. No CVA tenderness. Procedures 10/09/2017 Left L4-5 decompressive hemilaminectomy, mesiofacetectomy, foraminotomy, microsurgical resection of the disk A/P Problem List: (1) Stenosis of lumbosacral spine ICD Code: M48.07 - Spinal stenosis, lumbosacral region Status: Acute (2) Stage 4 chronic kidney disease ICD Code: N18.4 - Chronic kidney disease, stage 4 (severe) (3) Diabetes mellitus ICD Code: E11.9 - Type 2 diabetes mellitus without complications (4) Hypertension ICD Code: I10 - Essential (primary) hypertension Assessment and Plan 67-year-old male with a past medical history significant for chronic kidney disease stage IV, diabetes mellitus, hypertension and hyperlipidemia presents the emergency department on 10/07/2017 for evaluation of left lower extremity weakness. Neurosurgery evaluated him due to spinal stenosis at L4-L5 and L5- S1. MRI studies indicated L4-L5 significant disc extrusion. Neurosurgery recommended surgical intervention. Severe spinal stenosis - CT done at outside hospital shows spinal stenosis at L4-5 and L5-S1 by CT - Neurosurgery consulted, appreciate assistance - MRI lumbar spine with L4-L5 5 disc bulge with L4 nerve root impingement. - s/p L4-L5 decompressive surgery on 10/09/2017. Hypertension hyperlipidemia - Continue amlodipine 10 mg daily, atorvastatin 80 mg daily at bedtime, carvedilol 3.125 mg twice a day. - Patient is also on hydralazine 25 mg 3 times a day. Diabetes mellitus - continue sliding scale insulin. - Patient's home medication include glargine 17 8 daily at bedtime and aspart sliding scale. - We'll probably need to include some long-acting insulin. Full code. SCDs. Pharmacological DVT prophylaxis when okay with neurosurgery. Enrique Field DO Oct 10, 2017 2:09 pm
--- NOTE | 2017-10-10 15:55 | HHI.NPPN ---
Subjective General Problems: Anemia, Edema, Hypertension Renal Failure: Stage IV History of Present Illness 67-year-old male known to me from before. He was seen by me in the office a few years ago with a past medical history of diabetes mellitus, hypertension, chronic kidney disease stage IV and hyperlipidemia. He came to the hospital with a complaint of back pain and weakness in the leg. I was called to see the patient because of elevated BUN and creatinine. Additional Remarks no acute complaints, ongoing back pains Review of Systems General Constitutional: Fatigue Cardiovascular Cardiac: NG Objective Data Data Vital Signs Date Time Temp Pulse Resp B/P (MAP) Pulse Ox O2 Delivery O2 Flow Rate FiO2 10/10/17 12:00 97.8 92 18 142/86 (104) 96 10/10/17 08:00 98.0 96 12 159/84 (109) 94 10/10/17 08:00 94 Nasal Cannula 1.50 10/10/17 08:00 95 10/10/17 06:00 95 10/10/17 04:00 98.3 90 13 158/84 (108) 98 10/10/17 04:00 90 10/10/17 02:00 95 10/10/17 00:00 98.6 93 15 163/91 (115) 95 10/09/17 23:00 100 10/09/17 22:18 97 Nasal Cannula 10/09/17 22:00 92 10/09/17 22:00 98.2 96 17 152/88 (109) 93 10/09/17 21:00 99 20 160/95 (116) 96 Nasal Cannula 4 10/09/17 20:00 90 16 161/90 (113) 96 Nasal Cannula 4 10/09/17 19:30 84 16 165/88 (113) 96 Nasal Cannula 4 10/09/17 19:15 84 14 170/85 (113) 96 Nasal Cannula 4 10/09/17 19:00 92 16 178/96 (123) 96 Nasal Cannula 4 10/09/17 18:45 100 15 166/74 (104) 95 Nasal Cannula 4 10/09/17 18:32 98.2 101 17 145/78 (100) 98 Nasal Cannula 4 -: 10/07/17 1730 10/08/17 0953 Physical Exam General Appearance: No Acute Distress, Comfortable Eyes Eye Exam: Pupils Equal Pulmonary Resp Exam: Breath Sounds Equal, No Distress, Rhonchi, Decreased Bases Cardiology CV Exam: Regular, Normal Sinus Rhythm Gastrointestinal/Abdomen GI Exam: Soft, Non-Tender, Bowel Sounds Present, Distended Extremeties Extremities Exam: Trace Edema Neurologic Neuro Exam: Alert, Awake, Oriented Psychiatric Psych Exam: Appropriate Responses Assessment/Plan Assessment Summary: Anemia of CKD, Hypertension, Diabetes Mellitus, CKD Stage IV Problem List: (1) Stage 4 chronic kidney disease ICD Codes: N18.4 - Chronic kidney disease, stage 4 (severe) (2) Hypertension ICD Codes: I10 - Essential (primary) hypertension (3) Diabetes mellitus ICD Codes: E11.9 - Type 2 diabetes mellitus without complications (4) Weakness ICD Codes: R53.1 - Weakness Status: Acute (5) Stenosis of lumbosacral spine ICD Codes: M48.07 - Spinal stenosis, lumbosacral region Status: Acute Plan Patient has stage 4 chronic kidney disease. Has Proteinuria, Most likely has chronic kidney disease due to Hypertensive or Diabetic renal disease. S/P Left L4-5 laminectomy 10/09, on bed rest now. Creatinine was stable - will check AM labs. . BP is controlled,. Avoid Nephrotoxins, follow the BMP. If D/C, he will follow at [facility]. Trey Tamayo MD Oct 10, 2017 15:55
[2017-10-10] MEDS: MORPHINE SULFATE 4 MG/ML INJ IV PUSH PRN (15:57)
[2017-10-10] MEDS: ATORVASTATIN 80 MG TAB PO SCH (20:30)
[2017-10-11] MEDS: MORPHINE SULFATE 4 MG/ML INJ IV PUSH PRN ×5 (03:26→20:04)
[2017-10-11 04:30] VITALS: BP 163/98; PULSE 108; RESP 18; TEMP 96.6; O2SAT 96
[2017-10-11] MEDS: SODIUM CHLOR 0.9% 1000 ML INJ 1,000 ML IV SCH ×2 (06:03→17:27)
[2017-10-11 08:00] VITALS: BP 165/101; PULSE 96; RESP 18; TEMP 98.6; O2SAT 93
[2017-10-11] MEDS: CARVEDILOL 3.125 MG TAB PO SCH ×2 (08:26→20:04)
[2017-10-11] MEDS: PANTOPRAZOLE SOD 40 MG DELAYED RELEASE TAB PO SCH (08:26)
[2017-10-11] MEDS: ALLOPURINOL 100 MG TAB PO SCH (08:26)
[2017-10-11] MEDS: hydrALAZINE HCL 25 MG TAB PO SCH ×3 (08:26→17:24)
[2017-10-11] MEDS: INSULIN ASPART SUPPLEMENTAL SCALE SQ SCH ×4 (08:26→20:05)
[2017-10-11] MEDS: FERROUS SULFATE 325 MG (65 MG ELEMENTAL IRON) TAB PO SCH (08:27)
[2017-10-11] MEDS: DOCUSATE SODIUM 100 MG CAP PO SCH ×2 (08:27→20:04)
[2017-10-11] MEDS: cloNIDine HCL 0.1 MG TAB PO SCH (08:27)
[2017-10-11 08:32] LABS: BICARBONATE 23.6 MEQ/L (21.0-32.0); CALCIUM 8.5 MG/DL (8.5-10.1)
[2017-10-11] MEDS: CALCIUM ACETATE 667 MG CAP PO SCH ×3 (09:00→17:24)
[2017-10-11 12:00] VITALS: BP 174/98; PULSE 111; RESP 18; TEMP 98.9; O2SAT 92
--- NOTE | 2017-10-11 14:24 | HHI.PR ---
Subjective Remarks Follow-up for severe spinal stenosis, diabetes mellitus. Patient is currently in bed rest per neurosurgery. No fever, chills. Objective Vitals Vital Signs Date Time Temp Pulse Resp B/P (MAP) Pulse Ox O2 Delivery O2 Flow Rate FiO2 10/11/17 12:00 98.9 111 18 174/98 (123) 92 10/11/17 08:00 98.6 96 18 165/101 (122) 93 10/11/17 04:30 96.6 108 18 163/98 (119) 96 10/10/17 23:30 98.8 110 19 156/94 (114) 91 10/10/17 20:46 93 HOME CPAP 3.00 10/10/17 19:30 97.2 103 18 159/95 (116) 92 10/10/17 16:00 96.6 95 18 149/87 (107) 91 I/O 10/10/17 10/10/17 10/10/17 10/11/17 10/11/17 10/11/17 07:00 15:00 23:00 07:00 15:00 23:00 Intake Total 600 ml 3430 ml 1360 ml Output Total 1000 ml 2500 ml 1100 ml Balance -1000 ml 600 ml 930 ml 260 ml Intake Oral 600 ml 480 ml 760 ml IV Total 2950 ml 600 ml Output Urine Total 1000 ml 2500 ml 1100 ml # Bowel Movements 0 0 Result Diagram: 10/07/17 1730 10/11/17 0647 Imaging Last Impressions Lumbar Spine X-Ray 10/09/17 0000 Signed Impressions: Service Date/Time: Monday, October 09, 2017 16:24 - CONCLUSION: 1. Radiopaque markers at L5 level, as above. Timbo Harris MD Lumbar Spine MRI 10/08/17 0941 Signed Impressions: Service Date/Time: September 12:01 - CONCLUSION: 1. At L4- 5 is a broad based disc bulge with extrusion on the left side laterally impinging on the left L4 nerve root. Mild right-sided foraminal stenosis as well. Mild central canal stenosis. 2. Normal alignment of the lumbar spine. Conus medullaris is intact. No acute fracture. Sukhjinder Atkins MD Thoracic Spine MRI 10/08/17 0000 Signed Impressions: Service Date/Time: September 12:01 - CONCLUSION: 1. No acute fracture or spondylolisthesis. No cord signal abnormalities. Facet hypertrophic changes as above encroaching on the lateral recesses but without significant central canal stenosis. No direct nerve root compression no discrete disc protrusions. Sukhjinder Atkins MD Renal Ultrasound 10/08/17 0000 Signed Impressions: Service Date/Time: September 15:15 - CONCLUSION: 1. Medical renal disease without obstruction. 2. Bilateral simple renal cysts. David Little Jr., MD Objective Remarks GENERAL: Alert, NAD. SKIN: Warm and dry. HEAD: Normocephalic. EYES: No scleral icterus. No injection or drainage. NECK: Supple, trachea midline. No JVD or lymphadenopathy. CARDIOVASCULAR: Regular rate and rhythm without murmurs, gallops, or rubs. RESPIRATORY: Breath sounds equal bilaterally. No accessory muscle use. GASTROINTESTINAL: Abdomen soft, non-tender, nondistended. MUSCULOSKELETAL: No cyanosis, or edema. Able to move lower extremities well. BACK: Nontender without obvious deformity. No CVA tenderness. Procedures 10/09/2017 Left L4-5 decompressive hemilaminectomy, mesiofacetectomy, foraminotomy, microsurgical resection of the disk A/P Problem List: (1) Stenosis of lumbosacral spine ICD Code: M48.07 - Spinal stenosis, lumbosacral region Status: Acute (2) Stage 4 chronic kidney disease ICD Code: N18.4 - Chronic kidney disease, stage 4 (severe) (3) Diabetes mellitus ICD Code: E11.9 - Type 2 diabetes mellitus without complications (4) Hypertension ICD Code: I10 - Essential (primary) hypertension Assessment and Plan 67-year-old male with a past medical history significant for chronic kidney disease stage IV, diabetes mellitus, hypertension and hyperlipidemia presents the emergency department on 10/07/2017 for evaluation of left lower extremity weakness. Neurosurgery evaluated him due to spinal stenosis at L4-L5 and L5- S1. MRI studies indicated L4-L5 significant disc extrusion. Neurosurgery recommended surgical intervention. Severe spinal stenosis - CT done at outside hospital shows spinal stenosis at L4-5 and L5-S1 - Neurosurgery following. - MRI lumbar spine with L4-L5 disc bulge with L4 nerve root impingement. - s/p L4-L5 decompressive surgery on 10/09/2017. Hypertension hyperlipidemia - Continue amlodipine 10 mg daily, atorvastatin 80 mg daily at bedtime, carvedilol 3.125 mg twice a day. - Increase hydralazine to 50 mg 3 times a day. - Will make Clonidine PRN. - Will d/c IV fluid. Diabetes mellitus - continue sliding scale insulin. - Patient's home medication include glargine 70 units daily at bedtime and aspart sliding scale. - We started patient on a much lower dose of Levemir 7 units QHS. Currently BG is well controlled. Goal 140-180. Full code. SCDs. Pharmacological DVT prophylaxis when okay with neurosurgery. Enrique Field DO Oct 11, 2017 14:24
--- NOTE | 2017-10-11 14:27 | HHI.NSPN ---
History Chief Complaint: mild paresthesias bottom left foot. Interval History This is a 67-year-old male with history of chronic kidney disease stage IV, diabetes mellitus, hypertension and hyperlipidemia, who presents the emergency department for evaluation of left lower extremity weakness. He reports that approximately one month ago he began having left lower extremity weakness and numbness/tingling. He has been falling. He was seen in the hospital last week in [place] where he was found to have severe spinal stenosis at L4-L5 and L5-S1 and reportedly sent to my office. He denies any bowel or bladder incontinence. Hde developed inability to raise his left lower extremity. He has associated pain/numbness/tingling. Denies chest pain or shortness of breath. Denies nausea/vomiting. He has been uin a wheelchair, unable to ambulate for the past 4 days. Neurosurgical consultation was requested. 10/10/17: Pt awake and alert. Denies much pain. Mild paresthesias on the bottom of his left foot. No radiculopathy in LEs. Pt is on Bedrest per Dr. Guaman for CSF leak. 10/11/17: Pt awake and alert. Resting in bed states some discomfort just from being in bed. No radiculopathy in LEs. Paresthesias in left 1st toe. Pt had oley placed yesterday and had over a 1000 ml urine retention. Review of Systems General: Negative for: fever, chills, insomnia Respiratory: Negative for: shortness of breath, cough, sputum Cardiovascular: Negative for: chest pain Gastrointestinal: Negative for: nausea, vomitting, diarrhea, constipation Exam Results Vital Signs Date Time Temp Pulse Resp B/P (MAP) Pulse Ox O2 Delivery O2 Flow Rate FiO2 10/11/17 12:00 98.9 111 18 174/98 (123) 92 10/10/17 20:46 HOME CPAP 3.00 Intake and Output 10/11/17 10/11/17 10/12/17 08:00 16:00 00:00 Intake Total 1360 ml Output Total 1100 ml Balance 260 ml Physical Examination General: Pt resting comfortably in bed. Resp: CTA bilaterally Heart: NSR no murmurs Abd: Soft positive bs. Obese. Skin: No cyanosis or erythema. SCDs in place. Bandage placed by RN. Muscle: Moves LEs with good strength in bed. Neuro: Pt awake and alert. Follows commands well. Speech clear and appropriate. Lab, Micro, Other Results Last Impressions Lumbar Spine X-Ray 10/09/17 0000 Signed Impressions: Service Date/Time: Monday, October 09, 2017 16:24 - CONCLUSION: 1. Radiopaque markers at L5 level, as above. Timbo Harris MD Lumbar Spine MRI 10/08/17 0941 Signed Impressions: Service Date/Time: September 12:01 - CONCLUSION: 1. At L4- 5 is a broad based disc bulge with extrusion on the left side laterally impinging on the left L4 nerve root. Mild right-sided foraminal stenosis as well. Mild central canal stenosis. 2. Normal alignment of the lumbar spine. Conus medullaris is intact. No acute fracture. Sukhjinder Atkins MD Thoracic Spine MRI 10/08/17 0000 Signed Impressions: Service Date/Time: September 12:01 - CONCLUSION: 1. No acute fracture or spondylolisthesis. No cord signal abnormalities. Facet hypertrophic changes as above encroaching on the lateral recesses but without significant central canal stenosis. No direct nerve root compression no discrete disc protrusions. Sukhjinder Atkins MD Renal Ultrasound 10/08/17 0000 Signed Impressions: Service Date/Time: September 15:15 - CONCLUSION: 1. Medical renal disease without obstruction. 2. Bilateral simple renal cysts. David Little Jr., MD Laboratory Tests Test 10/11/17 06:47 Blood Urea Nitrogen 51 MG/DL Creatinine 3.00 MG/DL Random Glucose 185 MG/DL Calcium Level 8.5 MG/DL Sodium Level 136 MEQ/L Potassium Level 3.3 MEQ/L Chloride Level 101 MEQ/L Carbon Dioxide Level 23.6 MEQ/L Anion Gap 11 MEQ/L Estimat Glomerular Filtration Rate 21 ML/MIN Medical Decision Making Impression and Plan A: 67 y/o M s/p L4/L5 laminectomy with microdiscectomy CSF leak P: continue with bedrest per Dr. Guaman until Thursday Continue to move LEs in bed. Rotate to sides q 2 hours to avoid pressure to incision. Doni Santoyo Oct 11, 2017 2:26 pm
[2017-10-11 16:00] VITALS: BP 176/108; PULSE 120; RESP 18; TEMP 99.8; O2SAT 91
--- NOTE | 2017-10-11 16:07 | HHI.NPPN ---
Subjective General Problems: Anemia, Edema, Hypertension Renal Failure: Stage IV History of Present Illness 67-year-old male known to me from before. He was seen by me in the office a few years ago with a past medical history of diabetes mellitus, hypertension, chronic kidney disease stage IV and hyperlipidemia. He came to the hospital with a complaint of back pain and weakness in the leg. I was called to see the patient because of elevated BUN and creatinine. Additional Remarks no acute complaints, on bed rest Review of Systems General Constitutional: Fatigue Cardiovascular Cardiac: NG Objective Data Data Vital Signs Date Time Temp Pulse Resp B/P (MAP) Pulse Ox O2 Delivery O2 Flow Rate FiO2 10/11/17 12:00 98.9 111 18 174/98 (123) 92 10/11/17 08:00 98.6 96 18 165/101 (122) 93 10/11/17 04:30 96.6 108 18 163/98 (119) 96 10/10/17 23:30 98.8 110 19 156/94 (114) 91 10/10/17 20:46 93 HOME CPAP 3.00 10/10/17 19:30 97.2 103 18 159/95 (116) 92 -: 10/07/17 1730 10/11/17 0647 Physical Exam General Appearance: No Acute Distress, Comfortable Eyes Eye Exam: Pupils Equal Pulmonary Resp Exam: Breath Sounds Equal, No Distress, Rhonchi, Decreased Bases Cardiology CV Exam: Regular, Normal Sinus Rhythm Gastrointestinal/Abdomen GI Exam: Soft, Non-Tender, Bowel Sounds Present, Distended Extremeties Extremities Exam: Trace Edema Neurologic Neuro Exam: Alert, Awake, Oriented Psychiatric Psych Exam: Appropriate Responses Assessment/Plan Assessment Summary: Anemia of CKD, Hypertension, Diabetes Mellitus, CKD Stage IV Problem List: (1) Stage 4 chronic kidney disease ICD Codes: N18.4 - Chronic kidney disease, stage 4 (severe) (2) Hypertension ICD Codes: I10 - Essential (primary) hypertension (3) Diabetes mellitus ICD Codes: E11.9 - Type 2 diabetes mellitus without complications (4) Weakness ICD Codes: R53.1 - Weakness Status: Acute (5) Stenosis of lumbosacral spine ICD Codes: M48.07 - Spinal stenosis, lumbosacral region Status: Acute Plan Patient has stage 4 chronic kidney disease. Has Proteinuria, Most likely has chronic kidney disease due to Hypertensive or Diabetic renal disease. S/P Left L4-5 laminectomy 10/09, on bed rest now. Initial post-op urinary retention - > 1L UOP post hahn. Creatinine 3.4 -> 3.0 now, stable. . Avoid Nephrotoxins, follow the BMP. If D/C, he will follow at [place]. Trey Tamayo MD Oct 11, 2017 16:07
[2017-10-11] MEDS ORDERED: POTASSIUM CHLORIDE 25 MEQ EFFERVESCENT TAB PO ONE (16:15)
[2017-10-11] MEDS: ATORVASTATIN 80 MG TAB PO SCH (20:04)
[2017-10-11 20:10] VITALS: BP 146/92; PULSE 116; RESP 18; TEMP 99.5; O2SAT 96
[2017-10-11] MEDS ORDERED: INSULIN DETEMIR 100 UNITS/ML VIAL SQ SCH (21:00)
[2017-10-11 23:32] VITALS: BP 161/85; PULSE 114; RESP 18; TEMP 97.9; O2SAT 97
[2017-10-12] MEDS ORDERED: cloNIDine HCL 0.1 MG TAB PO PRN
[2017-10-12] MEDS: MORPHINE SULFATE 4 MG/ML INJ IV PUSH PRN (00:04)
[2017-10-12 03:42] VITALS: BP 136/78; PULSE 116; RESP 18; TEMP 97.7; O2SAT 95
[2017-10-12 04:00] VITALS: PULSE 116
[2017-10-12] MEDS: ACETAMINOPHEN/HYDROcodone 325 MG/10 MG TAB PO PRN ×4 (05:46→22:04)
[2017-10-12 05:54] LABS: AUTOMATED NEUTROPHIL # 9.6 TH/MM3 (1.8-7.7); BASOPHIL # 0.1 TH/MM3 (0-0.2); BASOPHIL % 0.7 % (0.0-2.0); EOSINOPHIL # 0.3 TH/MM3 (0-0.4); EOSINOPHIL % 2.2 % (0.0-4.0); HEMATOCRIT 30.3 % (39.0-51.0); LYMPH % 6.9 % (9.0-44.0); LYMPHOCYTE # 0.8 TH/MM3 (1.0-4.8); MEAN CELL VOLUME 86.7 FL (80.0-100.0); MEAN CORPUSCULAR HEMOGLOBIN 28.5 PG (27.0-34.0); MEAN CORPUSCULAR HGB CONC 32.9 % (32.0-36.0); MEAN PLATELET VOLUME 8.4 FL (7.0-11.0); MONO % 10.5 % (0.0-8.0); MONOCYTE # 1.3 TH/MM3 (0-0.9); NEUT % 79.7 % (16.0-70.0); PLATELET COUNT 234 TH/MM3 (150-450); RED CELL DISTRIBUTION WIDTH 16.3 % (11.6-17.2); WHITE BLOOD COUNT 12.1 TH/MM3 (4.0-11.0)
[2017-10-12 06:14] LABS: BICARBONATE 24.6 MEQ/L (21.0-32.0); CALCIUM 9.1 MG/DL (8.5-10.1); CREATININE 2.78 MG/DL (0.60-1.30)
[2017-10-12 08:00] VITALS: BP 162/98; PULSE 119; RESP 17; TEMP 98.1; O2SAT 96
[2017-10-12] MEDS: DOCUSATE SODIUM 100 MG CAP PO SCH ×2 (09:35→22:03)
[2017-10-12] MEDS: CALCIUM ACETATE 667 MG CAP PO SCH ×3 (09:35→17:02)
[2017-10-12] MEDS: ALLOPURINOL 100 MG TAB PO SCH (09:35)
[2017-10-12] MEDS: hydrALAZINE HCL 25 MG TAB PO SCH ×3 (09:36→17:03)
[2017-10-12] MEDS: PANTOPRAZOLE SOD 40 MG DELAYED RELEASE TAB PO SCH (09:36)
[2017-10-12] MEDS: CARVEDILOL 3.125 MG TAB PO SCH ×2 (09:36→22:03)
[2017-10-12] MEDS: FERROUS SULFATE 325 MG (65 MG ELEMENTAL IRON) TAB PO SCH (09:36)
[2017-10-12] MEDS: INSULIN ASPART SUPPLEMENTAL SCALE SQ SCH ×4 (09:44→21:00)
--- NOTE | 2017-10-12 10:32 | HHI.NSPN ---
(Debbie Osei) Note Status Status: Progress Note (Debbie Osei) Interval History Interval History This is a 67-year-old male with history of chronic kidney disease stage IV, diabetes mellitus, hypertension and hyperlipidemia, who presents the emergency department for evaluation of left lower extremity weakness. He reports that approximately one month ago he began having left lower extremity weakness and numbness/tingling. He has been falling. He was seen in the hospital last week in [place] where he was found to have severe spinal stenosis at L4-L5 and L5-S1 and reportedly sent to my office. He denies any bowel or bladder incontinence. Hde developed inability to raise his left lower extremity. He has associated pain/numbness/tingling. Denies chest pain or shortness of breath. Denies nausea/vomiting. He has been uin a wheelchair, unable to ambulate for the past 4 days. Neurosurgical consultation was requested. 10/10/17: Pt awake and alert. Denies much pain. Mild paresthesias on the bottom of his left foot. No radiculopathy in LEs. Pt is on Bedrest per Dr. Guaman for CSF leak. 10/11/17: Pt awake and alert. Resting in bed states some discomfort just from being in bed. No radiculopathy in LEs. Paresthesias in left 1st toe. Pt had oley placed yesterday and had over a 1000 ml urine retention. 10/12/17: reports to be doing well, eager to get out of bed today. had some confusion with IV morphine. prior left radicular pain improved. (Debbie Osei) Labs, Micro, & Vital Signs Results Date Time Temp Pulse Resp B/P (MAP) Pulse Ox O2 Delivery O2 Flow Rate FiO2 10/12/17 08:00 98.1 119 17 162/98 (119) 96 10/12/17 04:00 116 10/12/17 03:42 97.7 116 18 136/78 (97) 95 10/11/17 23:32 97.9 114 18 161/85 (110) 97 10/11/17 20:10 99.5 116 18 146/92 (110) 96 10/11/17 16:00 99.8 120 18 176/108 (130) 91 10/11/17 12:00 98.9 111 18 174/98 (123) 92 Constitutional Vital Signs Date Time Temp Pulse Resp B/P (MAP) Pulse Ox O2 Delivery O2 Flow Rate FiO2 10/12/17 08:00 98.1 119 17 162/98 (119) 96 10/12/17 04:00 116 10/12/17 03:42 97.7 116 18 136/78 (97) 95 10/11/17 23:32 97.9 114 18 161/85 (110) 97 10/11/17 20:10 99.5 116 18 146/92 (110) 96 10/11/17 16:00 99.8 120 18 176/108 (130) 91 10/11/17 12:00 98.9 111 18 174/98 (123) 92 (Debbie Osei) Review of Systems Constitutional: DENIES: Fever Cardiovascular: DENIES: Chest pain Neurologic: COMPLAINS OF: Localized weakness (Debbie Osei) Physical Exam Mr. Leonard is alert, awake and oriented to time, place and person. Speech is fluent. Follows commands well. Cranial nerve examination: pupils equal, round. Extra-ocular movements are intact. Facial motor are normal and symmetrical. Gross hearing is intact, bilaterally. Other cranial nerves are intact. Neck is soft and supple. Musculoskeletal In the lower extremities, strength is 5/5 in both iliopsoas, quadriceps, hamstrings, plantar flexion, right dorsiflexion, and extensor hallicus longus, 4/5 left dorsiflexion and EHL. Reflex: bilateral plantar flexion response. Resp: clear, nonlabored Heart: regular rate Skin: warm and dry Hahn catheter in place (Debbie Osei) Medications Current Medications Current Medications Medications (Trade) Dose Ordered Sig/Matthew Route PRN Reason Start Time Stop Time Status Last Admin Dose Admin Amlodipine Besylate (Norvasc) 10 mg DAILY PO 10/08/17 09:00 10/12/17 09:35 Atorvastatin Calcium (Lipitor) 80 mg HS PO 10/07/17 21:00 10/11/17 20:04 Calcium Acetate (Phoslo) 667 mg TID PO 10/08/17 09:00 10/12/17 09:35 Carvedilol (Coreg) 3.125 mg BID PO 10/07/17 21:15 10/12/17 09:36 Clopidogrel Bisulfate (Plavix) 75 mg DAILY PO 10/08/17 09:00 Future Hold Ferrous Sulfate (Ferrous Sulfate) 325 mg DAILY PO 10/08/17 09:00 10/12/17 09:36 Allopurinol (Zyloprim) 200 mg DAILY PO 10/08/17 09:00 10/12/17 09:35 Docusate Sodium (Colace) 100 mg BID PO 10/09/17 21:00 10/12/17 09:35 Pantoprazole Sodium (Protonix) 40 mg DAILY PO 10/10/17 09:00 10/12/17 09:36 Acetaminophen/ Hydrocodone Bitart ([place] 10-325 Mg) 1 tab Q4H PRN PO PAIN SCALE 1 TO 5 10/09/17 15:30 10/09/17 22:03 Acetaminophen/ Hydrocodone Bitart ([place] 10-325 Mg) 2 tab Q4H PRN PO PAIN SCALE 6 TO 10 10/09/17 15:30 10/12/17 09:42 Morphine Sulfate (Morphine Inj) 2 mg Q2H PRN IV PUSH PAIN SCALE 1 TO 6 10/09/17 15:30 10/11/17 20:04 Morphine Sulfate (Morphine Inj) 4 mg Q2H PRN IV PUSH PAIN SCALE 7 TO 10 10/09/17 15:30 10/12/17 00:04 Acetaminophen (Tylenol) 650 mg Q4H PRN PO TEMPERATURE > 101.5 F 10/09/17 15:30 Dextrose (D50w (Vial) Inj) 50 ml UNSCH PRN IV PUSH HYPOGLYCEMIA-SEE COMMENTS 10/09/17 15:30 Glucagon (Glucagon Inj) 1 mg UNSCH PRN OTHER HYPOGLYCEMIA-SEE COMMENTS 10/09/17 15:30 Insulin Aspart (NovoLOG SUPPLEMENTAL SCALE) 1 ACHS SLIDING SCALE SQ 10/09/17 17:00 10/12/17 09:44 Insulin Detemir (Levemir Inj) 7 units HS SQ 10/11/17 21:00 10/11/17 20:05 Clonidine (Catapres) 0.1 mg Q6HR PRN PO SBP>160, DBP>90 10/12/17 00:00 Hydralazine HCl (Apresoline) 50 mg TID PO 10/12/17 09:00 10/12/17 09:36 (Debbie Osei) Medical Decision Making MDM Remarks 67 y/o male s/p left L4-5 decompressive laminectomy, microdiscectomy, 10/09/17 urinary retention, hahn catheter reinserted 10/11/17 (Debbie Osei) Plan Plan Remarks dc IV morphine due to confusion, cont Lortab prn pain Dr. Guaman cleared to start mobilizing OOB with corset brace today Physical Therapy medical management clear start chem dvt prophylaxis from NRS standpoint, cont SCDs and TEDs lumbar sutures dc 10-14 days post-op (Debbie Osei) Attending Statement The exam, history, and the medical decision-making described in the above note were completed with the assistance of the mid-level provider. I reviewed and agree with the findings presented. I attest that I had a [id number] encounter with the patient on the same day, and personally performed and documented my assessment and findings in the medical record. (Mikey Guaman MD) Debbie Osei Oct 12, 2017 10:32 Mikey Guaman MD Oct 18, 2017 20:45
[2017-10-12 12:00] VITALS: BP 139/88; PULSE 112; RESP 17; TEMP 97; O2SAT 95
[2017-10-12 16:00] VITALS: BP 143/87; PULSE 104; RESP 17; TEMP 97.4; O2SAT 97
--- NOTE | 2017-10-12 16:30 | HHI.NPPN ---
Subjective General Problems: Anemia, Edema, Hypertension Renal Failure: Stage IV History of Present Illness 67-year-old male known to me from before. He was seen by me in the office a few years ago with a past medical history of diabetes mellitus, hypertension, chronic kidney disease stage IV and hyperlipidemia. He came to the hospital with a complaint of back pain and weakness in the leg. I was called to see the patient because of elevated BUN and creatinine. Additional Remarks Resting comfortably. Reports mild SOB. No edema (Shante Sainz) Review of Systems General Constitutional: Fatigue (Shante Sainz) Respiratory Lungs: SOB (Shante Sainz) Cardiovascular Cardiac: NG Cardiac Remarks Denies cp (Shante Sainz) Gastrointestinal GI Remarks Denies abdominal pain (Shante Sainz) Objective Data Data Vital Signs Date Time Temp Pulse Resp B/P (MAP) Pulse Ox O2 Delivery O2 Flow Rate FiO2 10/12/17 16:00 97.4 104 17 143/87 (105) 97 10/12/17 12:00 97.0 112 17 139/88 (105) 95 10/12/17 10:42 18 10/12/17 08:00 98.1 119 17 162/98 (119) 96 10/12/17 04:00 116 10/12/17 03:42 97.7 116 18 136/78 (97) 95 10/11/17 23:32 97.9 114 18 161/85 (110) 97 10/11/17 20:10 99.5 116 18 146/92 (110) 96 (Shante Sainz) -: 10/12/17 0356 10/12/17 0356 Physical Exam General Appearance: No Acute Distress, Comfortable (Shante Sainz) Eyes Eye Exam: Pupils Equal (Shante Sainz) Pulmonary Resp Exam: Breath Sounds Equal, No Distress, Rhonchi, Decreased Bases (Shante Sainz) Cardiology CV Exam: Regular, Normal Sinus Rhythm (Shante Sainz) Gastrointestinal/Abdomen GI Exam: Soft, Non-Tender, Bowel Sounds Present, Distended (Shante Sainz) Extremeties Extremities Exam: Trace Edema (Shante Sainz) Neurologic Neuro Exam: Alert, Awake, Oriented (Shante Sainz) Psychiatric Psych Exam: Appropriate Responses (Shante Sainz) Assessment/Plan Assessment Summary: Anemia of CKD, Hypertension, Diabetes Mellitus, CKD Stage IV Problem List: (1) Stage 4 chronic kidney disease ICD Codes: N18.4 - Chronic kidney disease, stage 4 (severe) (2) Hypertension ICD Codes: I10 - Essential (primary) hypertension (3) Diabetes mellitus ICD Codes: E11.9 - Type 2 diabetes mellitus without complications (4) Weakness ICD Codes: R53.1 - Weakness Status: Acute (5) Stenosis of lumbosacral spine ICD Codes: M48.07 - Spinal stenosis, lumbosacral region Status: Acute Plan Patient has stage 4 chronic kidney disease. Has Proteinuria, Most likely has chronic kidney disease due to Hypertensive or Diabetic renal disease. S/P Left L4-5 laminectomy 10/09 Initial post-op urinary retention - > 1L UOP post hahn. Creatinine stable improving at 2.78 Hypokalemia at 3.2 replacement ordered . Avoid Nephrotoxins, follow the BMP. If D/C, he will follow at [facility]. (Shante Sainz) Plan Patient seen and examined, agree with above. Creatinine slowly improving, K is replaced. (Maryuri Saldaña MD) Shante Sainz Oct 12, 2017 16:30 Maryuri Saldaña MD Oct 12, 2017 19:30
[2017-10-12] MEDS ORDERED: POTASSIUM CHLORIDE 20 MEQ CONTROLLED RELEASE TAB PO ONE (17:00)
--- NOTE | 2017-10-12 19:44 | HHI.PR ---
Subjective Remarks Follow-up for severe spinal stenosis, diabetes mellitus. Patient is doing well. No acute concerns. Wants to go home. Objective Vitals Vital Signs Date Time Temp Pulse Resp B/P (MAP) Pulse Ox O2 Delivery O2 Flow Rate FiO2 10/12/17 18:05 18 10/12/17 16:00 97.4 104 17 143/87 (105) 97 10/12/17 12:00 97.0 112 17 139/88 (105) 95 10/12/17 08:00 98.1 119 17 162/98 (119) 96 10/12/17 04:00 116 10/12/17 03:42 97.7 116 18 136/78 (97) 95 10/11/17 23:32 97.9 114 18 161/85 (110) 97 10/11/17 20:10 99.5 116 18 146/92 (110) 96 I/O 10/11/17 10/11/17 10/11/17 10/12/17 10/12/17 10/12/17 07:00 15:00 23:00 07:00 15:00 23:00 Intake Total 1360 ml 600 ml 740 ml 720 ml 350 ml Output Total 1100 ml 1700 ml 1000 ml 1250 ml 625 ml Balance 260 ml -1100 ml -260 ml -530 ml -275 ml Intake Oral 760 ml 600 ml 480 ml 720 ml 350 ml IV Total 600 ml 260 ml Output Urine Total 1100 ml 1700 ml 1000 ml 1250 ml 625 ml # Bowel Movements 0 0 0 0 Result Diagram: 10/12/17 0356 10/12/17 0356 Objective Remarks GENERAL: Alert, NAD. SKIN: Warm and dry. HEAD: Normocephalic. EYES: No scleral icterus. No injection or drainage. NECK: Supple, trachea midline. No JVD or lymphadenopathy. CARDIOVASCULAR: Regular rate and rhythm without murmurs, gallops, or rubs. RESPIRATORY: Breath sounds equal bilaterally. No accessory muscle use. GASTROINTESTINAL: Abdomen soft, non-tender, nondistended. MUSCULOSKELETAL: No cyanosis, or edema. Able to move lower extremities well. BACK: Nontender without obvious deformity. No CVA tenderness. Procedures 10/09/2017 Left L4-5 decompressive hemilaminectomy, mesiofacetectomy, foraminotomy, microsurgical resection of the disk A/P Problem List: (1) Stenosis of lumbosacral spine ICD Code: M48.07 - Spinal stenosis, lumbosacral region Status: Acute (2) Stage 4 chronic kidney disease ICD Code: N18.4 - Chronic kidney disease, stage 4 (severe) (3) Diabetes mellitus ICD Code: E11.9 - Type 2 diabetes mellitus without complications (4) Hypertension ICD Code: I10 - Essential (primary) hypertension Assessment and Plan 67-year-old male with a past medical history significant for chronic kidney disease stage IV, diabetes mellitus, hypertension and hyperlipidemia presents the emergency department on 10/07/2017 for evaluation of left lower extremity weakness. Neurosurgery evaluated him due to spinal stenosis at L4-L5 and L5- S1. MRI studies indicated L4-L5 significant disc extrusion. Neurosurgery recommended surgical intervention. Severe spinal stenosis - CT done at outside hospital shows spinal stenosis at L4-5 and L5-S1 - Neurosurgery following. - MRI lumbar spine with L4-L5 disc bulge with L4 nerve root impingement. - s/p L4-L5 decompressive surgery on 10/09/2017. Hypertension hyperlipidemia - Continue amlodipine 10 mg daily, atorvastatin 80 mg daily at bedtime, carvedilol 3.125 mg twice a day. - Increase hydralazine to 50 mg 3 times a day. - Will make Clonidine PRN. Diabetes mellitus - continue sliding scale insulin. - Patient's home medication include glargine 70 units daily at bedtime and aspart sliding scale. - Will increase long acting insulin to Levemir 10 units QHS. Currently BG is well controlled. Goal 140-180. Stage IV chronic kidney disease - Nephrology following. Creatinine 2.78 today. Full code. SCDs. Start Heparin 5000 units Q12hrs. Enrique Field DO Oct 12, 2017 19:44
[2017-10-12 20:00] VITALS: BP 154/93; PULSE 105; RESP 16; TEMP 97.7; O2SAT 96
[2017-10-12] MEDS: ATORVASTATIN 80 MG TAB PO SCH (22:02)
[2017-10-12] MEDS: INSULIN DETEMIR 100 UNITS/ML VIAL SQ SCH (22:04)
[2017-10-12] MEDS: HEPARIN SODIUM - SQ 10,000 UNITS/ML VIAL SQ SCH (22:05)
[2017-10-13] VITALS (7 sets, daily range): BP systolic 138–170; BP diastolic 80–94; PULSE 80–110; RESP 16–18; TEMP 95.9–98.6; O2SAT 90–97
[2017-10-13] MEDS: ACETAMINOPHEN/HYDROcodone 325 MG/10 MG TAB PO PRN ×3 (02:04→19:02)
[2017-10-13] MEDS: INSULIN ASPART SUPPLEMENTAL SCALE SQ SCH ×4 (08:00→20:11)
[2017-10-13] MEDS: hydrALAZINE HCL 25 MG TAB PO SCH ×3 (08:33→19:02)
[2017-10-13] MEDS: CARVEDILOL 3.125 MG TAB PO SCH ×2 (08:33→20:09)
[2017-10-13] MEDS: CALCIUM ACETATE 667 MG CAP PO SCH ×3 (08:33→19:02)
[2017-10-13] MEDS: DOCUSATE SODIUM 100 MG CAP PO SCH ×2 (08:33→20:08)
[2017-10-13] MEDS: FERROUS SULFATE 325 MG (65 MG ELEMENTAL IRON) TAB PO SCH (08:34)
[2017-10-13] MEDS: PANTOPRAZOLE SOD 40 MG DELAYED RELEASE TAB PO SCH (08:34)
[2017-10-13] MEDS: ALLOPURINOL 100 MG TAB PO SCH (08:34)
--- NOTE | 2017-10-13 10:06 | HHI.NSPN ---
(eDbbie Osei) Note Status Status: Progress Note (Debbie Osei) Interval History Interval History This is a 67-year-old male with history of chronic kidney disease stage IV, diabetes mellitus, hypertension and hyperlipidemia, who presents the emergency department for evaluation of left lower extremity weakness. He reports that approximately one month ago he began having left lower extremity weakness and numbness/tingling. He has been falling. He was seen in the hospital last week in [place] where he was found to have severe spinal stenosis at L4-L5 and L5-S1 and reportedly sent to my office. He denies any bowel or bladder incontinence. Hde developed inability to raise his left lower extremity. He has associated pain/numbness/tingling. Denies chest pain or shortness of breath. Denies nausea/vomiting. He has been uin a wheelchair, unable to ambulate for the past 4 days. Neurosurgical consultation was requested. 10/10/17: Pt awake and alert. Denies much pain. Mild paresthesias on the bottom of his left foot. No radiculopathy in LEs. Pt is on Bedrest per Dr. Guaman for CSF leak. 10/11/17: Pt awake and alert. Resting in bed states some discomfort just from being in bed. No radiculopathy in LEs. Paresthesias in left 1st toe. Pt had oley placed yesterday and had over a 1000 ml urine retention. 10/12/17: reports to be doing well, eager to get out of bed today. had some confusion with IV morphine. prior left radicular pain improved. 10/13/17: requesting rehab in [place]. doing well, ambulated with PT yesterday. (Debbie Osei) Labs, Micro, & Vital Signs Results Date Time Temp Pulse Resp B/P (MAP) Pulse Ox O2 Delivery O2 Flow Rate FiO2 10/13/17 08:00 95.9 101 16 156/90 (112) 92 10/13/17 04:00 96.3 103 16 154/92 (112) 95 10/13/17 00:00 97.5 109 16 160/94 (116) 95 10/12/17 20:00 97.7 105 16 154/93 (113) 96 10/12/17 18:05 18 10/12/17 16:00 97.4 104 17 143/87 (105) 97 10/12/17 12:00 97.0 112 17 139/88 (105) 95 Constitutional Vital Signs Date Time Temp Pulse Resp B/P (MAP) Pulse Ox O2 Delivery O2 Flow Rate FiO2 10/13/17 08:00 95.9 101 16 156/90 (112) 92 10/13/17 04:00 96.3 103 16 154/92 (112) 95 10/13/17 00:00 97.5 109 16 160/94 (116) 95 10/12/17 20:00 97.7 105 16 154/93 (113) 96 10/12/17 18:05 18 10/12/17 16:00 97.4 104 17 143/87 (105) 97 10/12/17 12:00 97.0 112 17 139/88 (105) 95 (Debbie Osei) Review of Systems Constitutional: DENIES: Fever Cardiovascular: DENIES: Chest pain Neurologic: COMPLAINS OF: Localized weakness, Paresthesias (Debbie Osei) Physical Exam Mr. Leonard is alert, awake and oriented to time, place and person. Speech is fluent. Follows commands well. Cranial nerve examination: pupils equal, round. Extra-ocular movements are intact. Facial motor are normal and symmetrical. Gross hearing is intact, bilaterally. Neck is soft and supple. Musculoskeletal In the lower extremities, strength is 5/5 in both iliopsoas, quadriceps, hamstrings, plantar flexion, right dorsiflexion, and extensor hallicus longus, 4/5 left dorsiflexion and EHL. Reflex: bilateral plantar flexion response. Resp: clear, nonlabored Heart: regular rate Skin: warm and dry. Surgical wound with Optifoam dressing in place, clean and dry. (Debbie Osei) Medications Current Medications Current Medications Medications (Trade) Dose Ordered Sig/Matthew Route PRN Reason Start Time Stop Time Status Last Admin Dose Admin Amlodipine Besylate (Norvasc) 10 mg DAILY PO 10/08/17 09:00 10/13/17 08:33 Atorvastatin Calcium (Lipitor) 80 mg HS PO 10/07/17 21:00 10/12/17 22:02 Calcium Acetate (Phoslo) 667 mg TID PO 10/08/17 09:00 10/13/17 08:33 Carvedilol (Coreg) 3.125 mg BID PO 10/07/17 21:15 10/13/17 08:33 Clopidogrel Bisulfate (Plavix) 75 mg DAILY PO 10/08/17 09:00 Future Hold Ferrous Sulfate (Ferrous Sulfate) 325 mg DAILY PO 10/08/17 09:00 10/13/17 08:34 Allopurinol (Zyloprim) 200 mg DAILY PO 10/08/17 09:00 10/13/17 08:34 Docusate Sodium (Colace) 100 mg BID PO 10/09/17 21:00 10/13/17 08:33 Pantoprazole Sodium (Protonix) 40 mg DAILY PO 10/10/17 09:00 10/13/17 08:34 Acetaminophen/ Hydrocodone Bitart ([place] 10-325 Mg) 1 tab Q4H PRN PO PAIN SCALE 1 TO 5 10/09/17 15:30 10/09/17 22:03 Acetaminophen/ Hydrocodone Bitart ([place] 10-325 Mg) 2 tab Q4H PRN PO PAIN SCALE 6 TO 10 10/09/17 15:30 10/13/17 08:43 Acetaminophen (Tylenol) 650 mg Q4H PRN PO TEMPERATURE > 101.5 F 10/09/17 15:30 Dextrose (D50w (Vial) Inj) 50 ml UNSCH PRN IV PUSH HYPOGLYCEMIA-SEE COMMENTS 10/09/17 15:30 Glucagon (Glucagon Inj) 1 mg UNSCH PRN OTHER HYPOGLYCEMIA-SEE COMMENTS 10/09/17 15:30 Insulin Aspart (NovoLOG SUPPLEMENTAL SCALE) 1 ACHS SLIDING SCALE SQ 10/09/17 17:00 10/12/17 17:08 Clonidine (Catapres) 0.1 mg Q6HR PRN PO SBP>160, DBP>90 10/12/17 00:00 Hydralazine HCl (Apresoline) 50 mg TID PO 10/12/17 09:00 10/13/17 08:33 Insulin Detemir (Levemir Inj) 10 units HS SQ 10/12/17 21:00 10/12/17 22:04 Heparin Sodium (Porcine) (Heparin Inj) 5,000 units Q12HR SQ 10/12/17 21:00 10/12/17 22:05 (Debbie Osei) Medical Decision Making MDM Remarks 67 y/o male s/p left L4-5 decompressive laminectomy, microdiscectomy, 10/09/17, improved radicular pain urinary retention, hahn catheter reinserted 10/11/17, defer to medical service (Debbie Osei) Plan Plan Remarks cont Physical Therapy, mobilize with lumbar brace medical management clear start chem dvt prophylaxis from NRS standpoint, cont SCDs and TEDs cont keep Optifoam dressing on, to be removed this thursday10/16/17 lumbar sutures dc 10-14 days post-op, he may follow up in the office 10/20/17 for suture removal pt requesting dc to rehab in [place] - consult case mgt for assistance clear to dc from NRS standpoint (Debbie Osei) Attending Statement The exam, history, and the medical decision-making described in the above note were completed with the assistance of the mid-level provider. I reviewed and agree with the findings presented. I attest that I had a [id number] encounter with the patient on the same day, and personally performed and documented my assessment and findings in the medical record. (Mikey Guaman MD) Debbie Osei Oct 13, 2017 10:06 Mikey Guaman MD Oct 18, 2017 21:03
[2017-10-13] MEDS: HEPARIN SODIUM - SQ 10,000 UNITS/ML VIAL SQ SCH ×2 (11:45→20:10)
[2017-10-13] MEDS ORDERED: NOVOLOGP2 SQ (15:15)
[2017-10-13] MEDS ORDERED: LEVEMIR SQ (15:15)
[2017-10-13] MEDS ORDERED: HYDR-3583 PO (15:16)
--- NOTE | 2017-10-13 15:50 | HHI.NPPN ---
Subjective General Problems: Anemia, Edema, Hypertension Renal Failure: Stage IV History of Present Illness 67-year-old male known to me from before. He was seen by me in the office a few years ago with a past medical history of diabetes mellitus, hypertension, chronic kidney disease stage IV and hyperlipidemia. He came to the hospital with a complaint of back pain and weakness in the leg. I was called to see the patient because of elevated BUN and creatinine. Additional Remarks Resting comfortably. Denies SOB. No edema. Discharge plans underway (Shante Sainz) Review of Systems General Constitutional: Fatigue (Shante Sainz) Respiratory Lungs: SOB (Shante Sainz) Cardiovascular Cardiac: NG Cardiac Remarks Denies cp (Shante Sainz) Gastrointestinal GI Remarks Denies abdominal pain (Shante Sainz) Objective Data Data Vital Signs Date Time Temp Pulse Resp B/P (MAP) Pulse Ox O2 Delivery O2 Flow Rate FiO2 10/13/17 12:00 96.8 95 16 138/80 (99) 97 10/13/17 08:00 99 10/13/17 08:00 95.9 101 16 156/90 (112) 92 10/13/17 04:00 96.3 103 16 154/92 (112) 95 10/13/17 00:00 97.5 109 16 160/94 (116) 95 10/12/17 20:00 97.7 105 16 154/93 (113) 96 10/12/17 18:05 18 10/12/17 16:00 97.4 104 17 143/87 (105) 97 (Shante Sainz) -: 10/12/17 0356 10/12/17 0356 Physical Exam General Appearance: No Acute Distress, Comfortable (Shante Sainz) Eyes Eye Exam: Pupils Equal (Shante Sainz) Pulmonary Resp Exam: Breath Sounds Equal, No Distress, Rhonchi, Decreased Bases (Shante Sainz) Cardiology CV Exam: Regular, Normal Sinus Rhythm (Shante Sainz) Gastrointestinal/Abdomen GI Exam: Soft, Non-Tender, Bowel Sounds Present, Distended (Shatne Sainz) Extremeties Extremities Exam: Trace Edema (Shante Sainz) Neurologic Neuro Exam: Alert, Awake, Oriented (Shante Sainz) Psychiatric Psych Exam: Appropriate Responses (Shante Sainz) Assessment/Plan Assessment Summary: Anemia of CKD, Hypertension, Diabetes Mellitus, CKD Stage IV Problem List: (1) Stage 4 chronic kidney disease ICD Codes: N18.4 - Chronic kidney disease, stage 4 (severe) Plan: Patient has stage 4 chronic kidney disease. Has Proteinuria, Most likely has chronic kidney disease due to Hypertensive or Diabetic renal disease. S/P Left L4-5 laminectomy 10/09 Initial post-op urinary retention - > 1L UOP post hahn. Avoid Nephrotoxins, follow the BMP. Discharge to rehab underway, he will follow up with [place] Dr. Abebe (2) Hypertension ICD Codes: I10 - Essential (primary) hypertension (3) Diabetes mellitus ICD Codes: E11.9 - Type 2 diabetes mellitus without complications (4) Weakness ICD Codes: R53.1 - Weakness Status: Acute (5) Stenosis of lumbosacral spine ICD Codes: M48.07 - Spinal stenosis, lumbosacral region Status: Acute (Shante Sainz) Problem List: (1) Stage 4 chronic kidney disease ICD Codes: N18.4 - Chronic kidney disease, stage 4 (severe) Plan: Patient has stage 4 chronic kidney disease. Has Proteinuria, Most likely has chronic kidney disease due to Hypertensive or Diabetic renal disease. S/P Left L4-5 laminectomy 10/09 Initial post-op urinary retention - > 1L UOP post hahn. Avoid Nephrotoxins, follow the BMP. Discharge to rehab underway, [facility]. Patient seen and examined, agree with above. Creatinine is improving, [facility]. (2) Hypertension ICD Codes: I10 - Essential (primary) hypertension (3) Diabetes mellitus ICD Codes: E11.9 - Type 2 diabetes mellitus without complications (4) Weakness ICD Codes: R53.1 - Weakness Status: Acute (5) Stenosis of lumbosacral spine ICD Codes: M48.07 - Spinal stenosis, lumbosacral region Status: Acute (Maryuri Saldaña MD) Shante Sainz Oct 13, 2017 15:50 Maryuri Saldaña MD Oct 13, 2017 19:10
[2017-10-13] MEDS ORDERED: LACTULOSE SYRUP 20 GM/30 ML CUP PO PRN (18:15)
[2017-10-13] MEDS ORDERED: SENNOSIDES 8.6 MG TAB PO PRN (18:15)
[2017-10-13] MEDS ORDERED: BISACODYL 10 MG SUPP RECTAL PRN (18:15)
[2017-10-13] MEDS ORDERED: NALOXONE HCL 0.4 MG/ML AMP IV PUSH PRN (18:15)
[2017-10-13] MEDS ORDERED: MAGNESIUM HYDROXIDE SUSP 30 ML CUP PO PRN (18:15)
--- NOTE | 2017-10-13 19:13 | HHI.PR ---
Subjective Remarks Follow-up for severe spinal stenosis, diabetes mellitus. Patient is currently doing well. No acute concerns. Denies any chest pain, shortness of breath, fever or chills. [facility]. Objective Vitals Vital Signs Date Time Temp Pulse Resp B/P (MAP) Pulse Ox O2 Delivery O2 Flow Rate FiO2 10/13/17 16:00 96.5 102 18 152/91 (111) 93 10/13/17 12:00 96.8 95 16 138/80 (99) 97 10/13/17 12:00 96 10/13/17 08:00 99 10/13/17 08:00 95.9 101 16 156/90 (112) 92 10/13/17 04:00 96.3 103 16 154/92 (112) 95 10/13/17 00:00 97.5 109 16 160/94 (116) 95 10/12/17 20:00 97.7 105 16 154/93 (113) 96 I/O 10/12/17 10/12/17 10/12/17 10/13/17 10/13/17 10/13/17 07:00 15:00 23:00 07:00 15:00 23:00 Intake Total 720 ml 350 ml 500 ml 960 ml Output Total 1250 ml 625 ml 700 ml 600 ml 650 ml Balance -530 ml -275 ml -200 ml -600 ml 310 ml Intake Oral 720 ml 350 ml 500 ml 960 ml Output Urine Total 1250 ml 625 ml 700 ml 600 ml 650 ml # Bowel Movements 0 0 Result Diagram: 10/12/17 0356 10/12/17 0356 Objective Remarks GENERAL: Alert, NAD. SKIN: Warm and dry. HEAD: Normocephalic. EYES: No scleral icterus. No injection or drainage. NECK: Supple, trachea midline. No JVD or lymphadenopathy. CARDIOVASCULAR: Regular rate and rhythm without murmurs, gallops, or rubs. RESPIRATORY: Breath sounds equal bilaterally. No accessory muscle use. GASTROINTESTINAL: Abdomen soft, non-tender, nondistended. MUSCULOSKELETAL: No cyanosis, or edema. Able to move lower extremities well. BACK: Nontender without obvious deformity. No CVA tenderness. Procedures 10/09/2017 Left L4-5 decompressive hemilaminectomy, mesiofacetectomy, foraminotomy, microsurgical resection of the disk A/P Problem List: (1) Stenosis of lumbosacral spine ICD Code: M48.07 - Spinal stenosis, lumbosacral region Status: Acute (2) Stage 4 chronic kidney disease ICD Code: N18.4 - Chronic kidney disease, stage 4 (severe) (3) Diabetes mellitus ICD Code: E11.9 - Type 2 diabetes mellitus without complications (4) Hypertension ICD Code: I10 - Essential (primary) hypertension Assessment and Plan 67-year-old male with a past medical history significant for chronic kidney disease stage IV, diabetes mellitus, hypertension and hyperlipidemia presents the emergency department on 10/07/2017 for evaluation of left lower extremity weakness. Neurosurgery evaluated him due to spinal stenosis at L4-L5 and L5- S1. MRI studies indicated L4-L5 significant disc extrusion. Neurosurgery recommended surgical intervention. Severe spinal stenosis - CT done at outside hospital shows spinal stenosis at L4-5 and L5-S1 - Neurosurgery following. - MRI lumbar spine with L4-L5 disc bulge with L4 nerve root impingement. - s/p L4-L5 decompressive surgery on 10/09/2017. - Neurosurgery cleared for discharge to SNF. Hypertension hyperlipidemia - Continue amlodipine 10 mg daily, atorvastatin 80 mg daily at bedtime, carvedilol 3.125 mg twice a day. - Hydralazine to 50 mg 3 times a day. - Clonidine PRN. Diabetes mellitus - continue sliding scale insulin. - Patient's home medication include glargine 70 units daily at bedtime and aspart sliding scale. - Continue Levemir 10 units QHS. Currently BG is well controlled. Goal 140- 180. Stage IV chronic kidney disease - Nephrology following. Creatinine 2.78 Full code. Heparin subcutaneous. Discharge plan: Likely discharge to SNF on 10/14/2017. Enrique Field DO Oct 13, 2017 7:13 pm
[2017-10-13] MEDS: ATORVASTATIN 80 MG TAB PO SCH (20:10)
[2017-10-13] MEDS: INSULIN DETEMIR 100 UNITS/ML VIAL SQ SCH (20:11)
[2017-10-14] VITALS: BP 143/86; PULSE 105; PULSE 106; RESP 15; TEMP 96.8; O2SAT 93
[2017-10-14 04:00] VITALS: BP 163/87; PULSE 101; PULSE 99; RESP 15; TEMP 98.1; O2SAT 98
[2017-10-14] MEDS: ACETAMINOPHEN/HYDROcodone 325 MG/10 MG TAB PO PRN ×3 (04:42→12:00)
[2017-10-14 08:00] VITALS: BP 175/89; PULSE 107; RESP 18; TEMP 96.6; O2SAT 94
[2017-10-14] MEDS: INSULIN ASPART SUPPLEMENTAL SCALE SQ SCH ×2 (08:00→11:40)
[2017-10-14] MEDS: PANTOPRAZOLE SOD 40 MG DELAYED RELEASE TAB PO SCH (08:16)
[2017-10-14] MEDS: CALCIUM ACETATE 667 MG CAP PO SCH ×2 (08:16→12:00)
[2017-10-14] MEDS: hydrALAZINE HCL 25 MG TAB PO SCH ×2 (08:16→12:00)
[2017-10-14] MEDS: ALLOPURINOL 100 MG TAB PO SCH (08:16)
[2017-10-14] MEDS: FERROUS SULFATE 325 MG (65 MG ELEMENTAL IRON) TAB PO SCH (08:17)
[2017-10-14] MEDS: HEPARIN SODIUM - SQ 10,000 UNITS/ML VIAL SQ SCH (08:17)
[2017-10-14] MEDS: DOCUSATE SODIUM 100 MG CAP PO SCH (08:17)
[2017-10-14] MEDS: CARVEDILOL 3.125 MG TAB PO SCH (08:17)
--- NOTE | 2017-10-14 09:48 | HHI.NPPN ---
Subjective General Problems: Anemia, Edema, Hypertension Renal Failure: Stage IV History of Present Illness 67-year-old male known to me from before. He was seen by me in the office a few years ago with a past medical history of diabetes mellitus, hypertension, chronic kidney disease stage IV and hyperlipidemia. He came to the hospital with a complaint of back pain and weakness in the leg. I was called to see the patient because of elevated BUN and creatinine. Additional Remarks OOB in chair. Denies SOB. No edema. Discharge plans underway (Shante Sainz) Review of Systems General Constitutional: Fatigue (Shante Sainz) Respiratory Respiratory Remarks SOB improved (Shante Sainz) Cardiovascular Cardiac: NG Cardiac Remarks Denies cp (Shante Sainz) Gastrointestinal GI Remarks Denies abdominal pain (Shante Sainz) Objective Data Data Vital Signs Date Time Temp Pulse Resp B/P (MAP) Pulse Ox O2 Delivery O2 Flow Rate FiO2 10/14/17 08:00 96.6 107 18 175/89 (117) 94 10/14/17 04:00 99 10/14/17 04:00 98.1 101 15 163/87 (112) 98 10/14/17 00:00 96.8 105 15 143/86 (105) 93 10/14/17 00:00 106 10/13/17 20:00 98.6 110 16 170/92 (118) 90 10/13/17 20:00 110 10/13/17 16:00 96.5 102 18 152/91 (111) 93 10/13/17 15:00 80 10/13/17 12:00 96.8 95 16 138/80 (99) 97 10/13/17 12:00 96 (Shante Sainz) -: 10/12/17 0356 10/12/17 0356 Imaging Last Impressions Lumbar Spine X-Ray 10/09/17 0000 Signed Impressions: Service Date/Time: Monday, October 09, 2017 16:24 - CONCLUSION: 1. Radiopaque markers at L5 level, as above. Timbo Harris MD Lumbar Spine MRI 10/08/17 0941 Signed Impressions: Service Date/Time: September 12:01 - CONCLUSION: 1. At L4- 5 is a broad based disc bulge with extrusion on the left side laterally impinging on the left L4 nerve root. Mild right-sided foraminal stenosis as well. Mild central canal stenosis. 2. Normal alignment of the lumbar spine. Conus medullaris is intact. No acute fracture. Sukhjinder Atkins MD Thoracic Spine MRI 10/08/17 0000 Signed Impressions: Service Date/Time: September 12:01 - CONCLUSION: 1. No acute fracture or spondylolisthesis. No cord signal abnormalities. Facet hypertrophic changes as above encroaching on the lateral recesses but without significant central canal stenosis. No direct nerve root compression no discrete disc protrusions. Sukhjinder Atkins MD Renal Ultrasound 10/08/17 Signed Impressions: Service Date/Time: September 15:15 - CONCLUSION: 1. Medical renal disease without obstruction. 2. Bilateral simple renal cysts. David Little Jr., MD (Shante Sainz) Physical Exam General Appearance: No Acute Distress, Comfortable, Obese (Shante Sainz) Eyes Eye Exam: Pupils Equal (Shante Sainz) Throat Throat Exam: Oral Mucosa Tobias & Moist (Shante Sainz) Pulmonary Resp Exam: Breath Sounds Equal, No Distress, Decreased Bases (Shante SainzP) Cardiology CV Exam: Regular, Normal Sinus Rhythm (Shante Sainz) Gastrointestinal/Abdomen GI Exam: Soft, Non-Tender, Bowel Sounds Present (Shante Sianz) Genitourinary Exam: Flank Non-Tender (Shante Sainz) Integumentary Skin Exam: Clear, Warm (Shante Sainz) Extremeties Extremities Exam: Trace Edema (Shante Sainz) Neurologic Neuro Exam: Alert, Awake, Oriented (Shante Sainz) Psychiatric Psych Exam: Appropriate Responses (Shante Sainz) Assessment/Plan Assessment Summary: Anemia of CKD, Hypertension, Diabetes Mellitus, CKD Stage IV Problem List: (1) Stage 4 chronic kidney disease ICD Codes: N18.4 - Chronic kidney disease, stage 4 (severe) Plan: Patient has stage 4 chronic kidney disease. Has Proteinuria, Most likely has chronic kidney disease due to Hypertensive or Diabetic renal disease. S/P Left L4-5 laminectomy 10/09 Initial post-op urinary retention - > 1L UOP Cuevas to be removed today Avoid Nephrotoxins, follow the BMP. [facility], [facility]. (2) Hypertension ICD Codes: I10 - Essential (primary) hypertension (3) Diabetes mellitus ICD Codes: E11.9 - Type 2 diabetes mellitus without complications (4) Weakness ICD Codes: R53.1 - Weakness Status: Acute (5) Stenosis of lumbosacral spine ICD Codes: M48.07 - Spinal stenosis, lumbosacral region Status: Acute (Shante Sainz) Problem List: (1) Stage 4 chronic kidney disease ICD Codes: N18.4 - Chronic kidney disease, stage 4 (severe) Plan: Patient has stage 4 chronic kidney disease. Has Proteinuria, Most likely has chronic kidney disease due to Hypertensive or Diabetic renal disease. S/P Left L4-5 laminectomy 10/09 Initial post-op urinary retention - > 1L UOP Cuevas to be removed today Avoid Nephrotoxins, follow the BMP. Discharge to [facility] re[facility], [facility]. Patient seen and examined, agree with above. [facility]. (2) Hypertension ICD Codes: I10 - Essential (primary) hypertension (3) Diabetes mellitus ICD Codes: E11.9 - Type 2 diabetes mellitus without complications (4) Weakness ICD Codes: R53.1 - Weakness Status: Acute (5) Stenosis of lumbosacral spine ICD Codes: M48.07 - Spinal stenosis, lumbosacral region Status: Acute (Maryuri Saldaña MD) Shante Sainz Oct 14, 2017 09:48 Maryuri Saldaña MD Oct 14, 2017 19:39
[2017-10-14] MEDS ORDERED: diphenhydrAMINE HCL 2%/ZINC ACETATE 0.1% CREAM 30 APPLIC/30 GM TUBE TOPICAL PRN (10:00)
[2017-10-14 11:47] VITALS: BP 153/84; PULSE 93; RESP 18; TEMP 96.4
--- NOTE | 2017-10-14 23:28 | HHI.DS ---
Discharge Summary Admission Date Oct 07, 2017 at 20:34 Discharge Date: Oct 14, 2017 Admitting Diagnosis Spinal Stenosis; LLE Weakness (1) Stenosis of lumbosacral spine ICD Code: M48.07 - Spinal stenosis, lumbosacral region Status: Acute (2) Stage 4 chronic kidney disease ICD Code: N18.4 - Chronic kidney disease, stage 4 (severe) (3) Diabetes mellitus ICD Code: E11.9 - Type 2 diabetes mellitus without complications (4) Hypertension ICD Code: I10 - Essential (primary) hypertension Procedures 10/09/2017 Left L4-5 decompressive hemilaminectomy, mesiofacetectomy, foraminotomy, microsurgical resection of the disk Brief History - From Admission 67-year-old male with a past medical history significant for chronic kidney disease stage IV, diabetes mellitus, hypertension and hyperlipidemia presents the emergency department for evaluation of left lower extremity weakness. The patient reports that approximately one month ago he began having left lower extremity weakness and numbness/tingling. He also reports that he started falling. He was seen in the hospital last week in [place] where he was found to have severe spinal stenosis at L4-L5 and L5-S1. Patient denies any bowel or bladder incontinence. Per patient report, they wanted him to undergo an EMG at the Hospital in [place] however were unable to do so secondary to his chronic kidney disease. He was not evaluated by neurosurgery at this time. The patient reports an inability to raise his left lower extremity. He reports associated pain/numbness/tingling. Denies chest pain or shortness of breath. Denies nausea/vomiting/diarrhea. CBC/BMP: 10/12/17 0356 10/12/17 0356 Significant Findings Laboratory Tests Test 10/12/17 03:56 White Blood Count 12.1 TH/MM3 (4.0-11.0) Red Blood Count 3.50 MIL/MM3 (4.50-5.90) Hemoglobin 10.0 GM/DL (13.0-17.0) Hematocrit 30.3 % (39.0-51.0) Neutrophils (%) (Auto) 79.7 % (16.0-70.0) Lymphocytes (%) (Auto) 6.9 % (9.0-44.0) Monocytes (%) (Auto) 10.5 % (0.0-8.0) Neutrophils # (Auto) 9.6 TH/MM3 (1.8-7.7) Lymphocytes # (Auto) 0.8 TH/MM3 (1.0-4.8) Monocytes # (Auto) 1.3 TH/MM3 (0-0.9) Blood Urea Nitrogen 46 MG/DL (7-18) Creatinine 2.78 MG/DL (0.60-1.30) Random Glucose 165 MG/DL (74-106) Potassium Level 3.3 MEQ/L (3.5-5.1) Estimat Glomerular Filtration Rate 23 ML/MIN (>89) PE at Discharge GENERAL: Alert, NAD. SKIN: Warm and dry. HEAD: Normocephalic. EYES: No scleral icterus. No injection or drainage. NECK: Supple, trachea midline. No JVD or lymphadenopathy. CARDIOVASCULAR: Regular rate and rhythm without murmurs, gallops, or rubs. RESPIRATORY: Breath sounds equal bilaterally. No accessory muscle use. GASTROINTESTINAL: Abdomen soft, non-tender, nondistended. MUSCULOSKELETAL: No cyanosis, or edema. Able to move lower extremities well. BACK: Nontender without obvious deformity. No CVA tenderness. Pt update on day of discharge Patient is doing well. No acute concerns. Denies any chest pain, SOB, fever, chills. Hospital Course 67-year-old male with a past medical history significant for chronic kidney disease stage IV, diabetes mellitus, hypertension and hyperlipidemia presents the emergency department on 10/07/2017 for evaluation of left lower extremity weakness. Neurosurgery evaluated him due to spinal stenosis at L4-L5 and L5- S1. MRI studies indicated L4-L5 significant disc extrusion. Neurosurgery recommended surgical intervention. Severe spinal stenosis - CT done at outside hospital shows spinal stenosis at L4-5 and L5-S1 - Neurosurgery following. - MRI lumbar spine with L4-L5 disc bulge with L4 nerve root impingement. - s/p L4-L5 decompressive surgery on 10/09/2017. - Neurosurgery cleared for discharge to SNF. Hypertension hyperlipidemia - Continue amlodipine 10 mg daily, atorvastatin 80 mg daily at bedtime, carvedilol 3.125 mg twice a day. - Hydralazine to 50 mg 3 times a day. - Clonidine PRN. Diabetes mellitus - continue sliding scale insulin. - Patient's home medication include glargine 70 units daily at bedtime and aspart sliding scale. - Continue Levemir 10 units QHS. Currently BG is well controlled. Goal 140- 180. Stage IV chronic kidney disease - Nephrology following. Creatinine 2.78 Full code. Heparin subcutaneous. Pt Condition on Discharge: Good Discharge Disposition: Discharge to SNF Discharge Time: > 30 minutes Discharge Instructions DIET: Follow Instructions for: Diabetic Diet Activities you can perform: Regular-No Restrictions Follow up Referrals: [facility]surgery @ [facility] - Dr Guaman with Debbie Osei New Medications: Insulin Aspart Inj (Novolog Inj) 1,000 Unit/10 Ml Vial 1-9 UNITS SQ ACHS for Blood Sugar Management, #10 ML 0 Refills Max dose at bedtime:( )units; sugars less than 70,(0)units; sugars 150-199,(1) unit; sugars 200-249,(3) units; sugars 250-299,(5) units; sugars 300-349,(7) units; sugars greater than 349,(9) units Insulin Detemir Inj (Levemir Inj) 1,000 unit/ 10 ML Vial 10 UNITS SQ HS for Blood Sugar Management for 30 Days, VIAL 0 Refills Do not mix with any other Insulin. Hydrocodone/Acetaminophen (Hydrocodone-Acetamin 10-325 mg) 10 Mg-325 Mg Tablet 1 TAB PO Q4H PRN for PAIN SCALE 5 TO 10, #20 TAB Continued Medications: Allopurinol (Allopurinol) 300 Mg Tab 300 MG PO DAILY for Gout, #30 TAB 0 Refills Amlodipine (Amlodipine) 10 Mg Tab 10 MG PO DAILY for Blood Pressure Management, #30 TAB 0 Refills Atorvastatin (Atorvastatin) 80 Mg Tab 80 MG PO HS for Cholesterol Management, #30 TAB 0 Refills Calcium Acetate (Phosphate Binder) (Calcium Acetate (Phosphate Binder)) 667 Mg Tab 667 MG PO TID for Hyperphosphatemia, #90 TAB 0 Refills Carvedilol (Carvedilol) 6.25 Mg Tab 3.125 MG PO BID, #60 TAB 0 Refills Cholecalciferol (Vitamin D3) 1,000 Unit Cap 2000 UNITS PO DAILY for Nutritional Supplement, #1 BOTTLE 0 Refills Clonidine (Clonidine) 0.1 Mg Tab 0.1 MG PO BID for Blood Pressure Management, #60 TAB 0 Refills Clopidogrel (Clopidogrel) 75 Mg Tab 75 MG PO DAILY for Blood Clot Prevention, #30 TAB [address] (Ferrous Sulfate DR) 324 Mg Tabdr 324 MG PO DAILY for Nutritional Supplement, #30 TAB 0 Refills Furosemide (Furosemide) 20 Mg Tab 20 MG PO DAILY, #30 TAB 0 Refills Hydralazine HCl (Hydralazine HCl) 25 Mg Tablet 25 MG PO TID for Blood Pressure Management, #90 TAB 0 Refills Metolazone (Metolazone) 10 Mg Tab 10 MG PO DAILY, #30 TAB 0 Refills Multiple Vitamins W/ Minerals (Centrum) 1 Chew 1 TAB CHEW DAILY for Nutritional Supplement, TAB 0 Refills Discontinued Medications: Aspirin DR (Aspirin EC) 81 Mg Tabdr 81 MG PO DAILY, TAB 0 Refills Insulin Aspart Inj (Novolog Flexpen Inj) 300 Unit/3 Ml Pen 1 UNITS SQ TIDAC for Blood Sugar Management, #1 PEN 0 Refills Insulin Glargine Inj (Lantus Inj) 1,000 Unit/10 Ml Vial 70 UNITS SQ HS for Blood Sugar Management, VIAL 0 Refills Enrique Field DO Oct 14, 2017 23:27
== END 2017-10-14 15:25 | DRG 519 ==
LOC: NEPC 16:35 → NEDA 19:44 → OBSVTOIN 20:34 → N06A 22:05 → N03B 10-09 15:56 → N03A 10-09 21:22 → N06A 10-10 10:29
PROVIDERS: ADMIT Hospitalist; ATTEND Hospitalist
PROC: 00QT0ZZ Repair Spinal Meninges, Open Approach (ICD-10-PCS; 2017-10-09)
PROC: 01NB0ZZ Release Lumbar Nerve, Open Approach (ICD-10-PCS; 2017-10-09)
PROC: 0ST20ZZ Resection of Lumbar Vertebral Disc, Open Approach (ICD-10-PCS; principal; 2017-10-09 15:21)
PROC: 0T9B70Z Drainage of Bladder with Drainage Device, Via Natural or Artificial Opening (ICD-10-PCS; 2017-10-10)
DX: M48.061 Spinal stenosis, lumbar region without neurogenic claudication (principal); I13.0 Hypertensive heart and chronic kidney disease with heart failure and stage 1 through stage 4 chronic kidney disease, or unspecified chronic kidney disease; E11.22 Type 2 diabetes mellitus with diabetic chronic kidney disease; N18.4 Chronic kidney disease, stage 4 (severe); I50.9 Heart failure, unspecified; G96.0 Cerebrospinal fluid leak; M51.26 Other intervertebral disc displacement, lumbar region; E78.5 Hyperlipidemia, unspecified; M19.90 Unspecified osteoarthritis, unspecified site; Z79.01 Long term (current) use of anticoagulants; M48.07 Spinal stenosis, lumbosacral region; R29.6 Repeated falls; Z79.4 Long term (current) use of insulin; Z87.891 Personal history of nicotine dependence; M21.372 Foot drop, left foot; R26.2 Difficulty in walking, not elsewhere classified; G47.33 Obstructive sleep apnea (adult) (pediatric); D63.1 Anemia in chronic kidney disease; N99.89 Other postprocedural complications and disorders of genitourinary system; R33.8 Other retention of urine
CPT/HCPCS: 72020; 72120; 72146; 72148; 76000; 76775; 80048; 81001; 82948; 85025; 85610; 85730; 93005; 93306; 94150; J0131; J0690; J1030; J1100; J1580; J1644; J1815; J2250; J2270; J2370; J2405; J2550; J2710; J3010; J7030; J7040; L0627

== ENCOUNTER 2017-11-23 13:28 | Emergency (ER) | payer OTHER, MEDICARE ==
[~2017-11-23] VITALS: Ht 172.7 cm; Wt 104.5 kg
[~2017-11-23 13:28] MED LIST changes: +ALLO300T2 PO; +AMLO10TA2 PO; -ATOR10 PO; +ATOR80TA45 PO; +CALC667T PO; +CARV6.252 PO; +CENTCHW4 CHEW; +CHOL10008 PO; +CLON0.1T PO; +CLOP75TA PO; -DIAB1.25 PO; +FERR324T4 PO; +FURO20TA PO; +HYDR-3583 PO; +HYDR-3799 PO; +LEVEMIR SQ; +METO10TA4 PO; +NOVOLOGP2 SQ; -ROSI1TAB23
[2017-11-23 13:32] VITALS: BP 115/68; PULSE 127; RESP 20; TEMP 98.6; O2SAT 100
[2017-11-23 14:04] VITALS: BP 180/101; PULSE 106; RESP 20; O2SAT 97
[2017-11-23 17:38] LABS: BASOPHIL # 0.1 TH/MM3 (0-0.2); BASOPHIL % 0.6 % (0.0-2.0); EOSINOPHIL # 0.5 TH/MM3 (0-0.4); EOSINOPHIL % 3.7 % (0.0-4.0); HEMATOCRIT 31.7 % (39.0-51.0); HEMOGLOBIN 10.3 GM/DL (13.0-17.0); LYMPH % 11.9 % (9.0-44.0); LYMPHOCYTE # 1.6 TH/MM3 (1.0-4.8); MEAN CELL VOLUME 89.4 FL (80.0-100.0); MEAN CORPUSCULAR HEMOGLOBIN 29.1 PG (27.0-34.0); MEAN CORPUSCULAR HGB CONC 32.5 % (32.0-36.0); MEAN PLATELET VOLUME 8.5 FL (7.0-11.0); MONOCYTE # 0.9 TH/MM3 (0-0.9); NEUT % 76.8 % (16.0-70.0); PLATELET COUNT 307 TH/MM3 (150-450); RED BLOOD COUNT 3.55 MIL/MM3 (4.50-5.90); RED CELL DISTRIBUTION WIDTH 17.1 % (11.6-17.2)
[2017-11-23 17:42] LABS: PROTHROMBIN TIME - PATIENT 10.6 SEC (9.8-11.6)
[2017-11-23 17:47] VITALS: BP 146/88; PULSE 99; RESP 19; O2SAT 98
[2017-11-23] MEDS ORDERED: LANTUS2P SQ (17:47)
[2017-11-23 17:50] LABS: BICARBONATE 25.9 MEQ/L (21.0-32.0); CALCIUM 9.3 MG/DL (8.5-10.1); CREATININE 3.76 MG/DL (0.60-1.30)
[2017-11-23 17:55] LABS: BACTERIA, URINE RARE /hpf; BILIRUBIN, URINE NEG (NEG); BLOOD, URINE NEG (NEG); GLUCOSE,URINE TRACE mg/dL (NEG); KETONE, URINE NEG (NEG); MUCUS URINE FEW /lpf (OCC); NITRITE,URINE NEG (NEG); URINE COLOR LIGHT-YELLOW (YELLW/STRAW); URINE LEUKOCYTE ESTERASE NEG (NEG)
--- NOTE | 2017-11-23 18:12 | PD ---
HPI Chief Complaint: Back/ Neck Pain or Injury Time Seen by Provider: 17:47 Travel History International Travel<30 days: No Contact w/Intl Traveler<30days: No Traveled to known affect area: No History of Present Illness HPI 67-year-old male complains of weakness of the left leg. Patient has history of spinal stenosis status post back surgery by Dr. Guaman a month ago. Patient states that he had one week postop appointment for follow up with him and has not seen a neurosurgeon since then. Patient states that he has increasing weakness on the left leg since surgery. Patient is undergoing physical therapy at home. Patient states that he has increasing weakness of the left leg that makes him has frequent for. Patient denies any urinary or bowel incontinence. Patient denies any numbness of the left leg. Patient states that he has been unable to dorsiflex his left foot recently. Patient denies any fever chills. Patient denies any back pain. Patient states that his back pain resolved completely after the surgery however the weakness of left leg got progressively worse since his surgery. PFSH Past Medical History Hx Anticoagulant Therapy: Yes (plavix) Arthritis: Yes Cancer: No Cardiovascular Problems: Yes High Cholesterol: Yes Diabetes: Yes Patient Takes Glucophage: No Hypertension: Yes Kidney Stones: Yes Musculoskeletal: Yes Neurologic: Yes Psychiatric: No Renal Failure: Yes (stage 4) Sleep Apnea: Yes Influenza Vaccination: Yes Past Surgical History Abdominal Surgery: Yes Appendectomy: Yes Cholecystectomy: Yes Other Surgery: Yes Social History Alcohol Use: Yes ([employer]) Tobacco Use: No Substance Use: No Allergies-Medications (Allergen,Severity, Reaction): Coded Allergies: No Known Allergies (Verified Allergy, Mild, 11/23/17) Reported Meds & Prescriptions Reported Meds & Active Scripts Active Hydrocodone-Acetamin 10-325 mg (Hydrocodone/Acetaminophen) 10 Mg-325 Mg Tablet 1 Tab PO Q4H PRN Novolog Inj (Insulin Aspart) 1,000 Unit/10 Ml Vial 1-9 Units SQ ACHS Max dose at bedtime:( )units; sugars less than 70,(0)units; sugars 150-199,(1) unit; sugars 200-249,(3) units; sugars 250-299,(5) units; sugars 300-349,(7) units; sugars greater than 349,(9) units Reported Lantus Inj (Insulin Glargine) 1,000 Unit/10 Ml Vial 70 Units SQ HS Metolazone 10 Mg Tab 10 Mg PO DAILY Clopidogrel (Clopidogrel Bisulfate) 75 Mg Tab 75 Mg PO DAILY Allopurinol 300 Mg Tab 300 Mg PO DAILY Furosemide 20 Mg Tab 20 Mg PO DAILY Carvedilol 6.25 Mg Tab 3.125 Mg PO BID Clonidine (Clonidine HCl) 0.1 Mg Tab 0.1 Mg PO BID Amlodipine (Amlodipine Besylate) 10 Mg Tab 10 Mg PO DAILY Atorvastatin (Atorvastatin Calcium) 80 Mg Tab 80 Mg PO HS Hydralazine HCl 25 Mg Tablet 25 Mg PO TID Centrum (Multiple Vitamins W/ Minerals) 1 Chew 1 Tab CHEW DAILY Vitamin D3 (Cholecalciferol) 1,000 Unit Cap 2,000 Units PO DAILY Ferrous Sulfate DR (Ferrous Sulfate) 324 Mg Tabdr 324 Mg PO DAILY Calcium Acetate (Phosphate Binder) 667 Mg Tab 667 Mg PO TID Review of Systems General / Constitutional: No: Fever Eyes: No: Visual changes HENT: No: Headaches Cardiovascular: No: Chest Pain or Discomfort Respiratory: No: Shortness of Breath Gastrointestinal: No: Abdominal Pain Genitourinary: No: Dysuria Musculoskeletal: Positive: Weakness, No: Pain Skin: No Rash Neurologic: No: Weakness Psychiatric: No: Depression Endocrine: No: Polydipsia Hematologic/Lymphatic: No: Easy Bruising Physical Exam Narrative GENERAL: Well-nourished, well-developed patient. SKIN: Focused skin assessment warm/dry. HEAD: Normocephalic. EYES: No scleral icterus. No injection or drainage. NECK: Supple, trachea midline. No JVD or lymphadenopathy. CARDIOVASCULAR: Regular rate and rhythm without murmurs, gallops, or rubs. RESPIRATORY: Breath sounds equal bilaterally. No accessory muscle use. GASTROINTESTINAL: Abdomen soft, non-tender, nondistended. MUSCULOSKELETAL: No cyanosis, or edema. BACK: Nontender without obvious deformity. No CVA tenderness. Neurologic exam: Patient is awake alert oriented 3. Sensory function intact of the bilateral lower extremity. Patient has weakness of the left leg, unable to lift the left leg off the table. Patient can keep the left foot at 90 with weakness on dorsiflexion of the left foot. Data Data Last Documented VS Vital Signs Date Time Temp Pulse Resp B/P (MAP) Pulse Ox O2 Delivery O2 Flow Rate FiO2 11/23/17 17:47 99 19 146/88 (107) 98 Room Air Orders Orders Complete Blood Count With Diff (11/23/17 14:07) Basic Metabolic Panel (Bmp) (11/23/17 14:07) Prothrombin Time / Inr (Pt) (11/23/17 14:07) Act Partial Throm Time (Ptt) (11/23/17 14:07) Urinalysis - C+S If Indicated (11/23/17 14:07) Mri L Spine W/O Contrast (11/23/17 17:57) Labs Laboratory Tests Test 11/23/17 17:02 11/23/17 17:30 White Blood Count 13.0 TH/MM3 Red Blood Count 3.55 MIL/MM3 Hemoglobin 10.3 GM/DL Hematocrit 31.7 % Mean Corpuscular Volume 89.4 FL Mean Corpuscular Hemoglobin 29.1 PG Mean Corpuscular Hemoglobin Concent 32.5 % Red Cell Distribution Width 17.1 % Platelet Count 307 TH/MM3 Mean Platelet Volume 8.5 FL Neutrophils (%) (Auto) 76.8 % Lymphocytes (%) (Auto) 11.9 % Monocytes (%) (Auto) 7.0 % Eosinophils (%) (Auto) 3.7 % Basophils (%) (Auto) 0.6 % Neutrophils # (Auto) 10.0 TH/MM3 Lymphocytes # (Auto) 1.6 TH/MM3 Monocytes # (Auto) 0.9 TH/MM3 Eosinophils # (Auto) 0.5 TH/MM3 Basophils # (Auto) 0.1 TH/MM3 CBC Comment DIFF FINAL Differential Comment Prothrombin Time 10.6 SEC Prothromb Time International Ratio 1.0 RATIO Activated Partial Thromboplast Time 30.3 SEC Blood Urea Nitrogen 69 MG/DL Creatinine 3.76 MG/DL Random Glucose 137 MG/DL Calcium Level 9.3 MG/DL Sodium Level 136 MEQ/L Potassium Level 4.4 MEQ/L Chloride Level 100 MEQ/L Carbon Dioxide Level 25.9 MEQ/L Anion Gap 10 MEQ/L Estimat Glomerular Filtration Rate 16 ML/MIN Urine Color LIGHT-YELLOW Urine Turbidity CLEAR Urine pH 6.0 Urine Specific [place] 1.010 Urine Protein 300 mg/dL Urine Glucose (UA) TRACE mg/dL Urine Ketones NEG mg/dL Urine Occult Blood NEG Urine Nitrite NEG Urine Bilirubin NEG Urine Urobilinogen LESS THAN 2.0 MG/DL Urine Leukocyte Esterase NEG Urine RBC 1 /hpf Urine WBC 3 /hpf Urine Bacteria RARE /hpf Urine Mucus FEW /lpf Microscopic Urinalysis Comment CULT NOT INDICATED MDM Medical Decision Making Medical Screen Exam Complete: Yes Emergency Medical Condition: Yes Differential Diagnosis Differential diagnosis including radiculopathy, myelopathy. Narrative Course 67-year-old male with increasing weakness in the left leg. Status post back surgery a month ago. Dakota Calloway MD Nov 23, 2017 18:12
--- NOTE | 2017-11-23 20:29 | RADRPT ---
EXAM DATE/TIME: 11/23/2017 19:50 [facility] COMPARISON: MRI LUMBAR SPINE W/O CONTRAST, October 08, 2017, 12:01. INDICATIONS : Radiculopathy. Post lumbar surgery. MEDICAL HISTORY : Renal disease, end stage. Diabetes mellitus type 2. Hypertension. SURGICAL HISTORY : Discectomy, cervical. Discectomy, lumbar. ENCOUNTER: Initial ACUITY: 2 day PAIN SCORE: 8/10 LOCATION: Bilateral lower back region. TECHNIQUE: Multiplanar multisequence MRI of the lumbar spine was performed without contrast. FINDINGS: At 12-L1-L2-L3 there is no significant abnormality. At L3-4 there is a mild posterior disc bulge and facet arthropathy with left greater than right abby inal encroachment, similar to October 08. At L4-5 there is interval left-sided laminectomy. There is fluid extending from the left posterior el ements into the left lateral recess with postoperative fluid collection measuring about 2.7 x 1.4 cm. There is effacement of the normal fat around the exiting left L4 nerve root and there is some residu al disc material in the left lateral recess. There is mild central canal stenosis. At L5-S1 there is facet arthropathy without stenosis. CONCLUSION: 1. At L4-5 there is interval left-sided laminectomy with postoperative fluid collection extending int o the left lateral recess. There is a mild central canal stenosis at this level and there is some abn ormal soft tissue and fluid surrounding the exiting left L4 nerve root which may be impinged. 2. Remainder of lumbar spine levels unchanged from October 08. Sukhjinder Atkins MD on November 23, 2017 at 20:20 Board Certified Radiologist. This report was verified electronically.
--- NOTE | 2017-11-23 21:49 | PD ---
Physical Exam Narrative Patient signed out to me by Dr. aClloway. Please see his documentation for complete details. Briefly, patient is a 67 year old male who comes in due to left leg weakness. He has had the weakness for over a month. He had a laminectomy performed by Dr. Guaman in September, but this did not improve the weakness. He says that it seems the weakness is getting worse and he has been falling more frequently. He has some paresthesias in the leg, but denies saddle anesthesia or incontinence. Exam shows weakness of the left leg. Unable to dorsiflex the foot. Data Data Last Documented VS Vital Signs Date Time Temp Pulse Resp B/P (MAP) Pulse Ox O2 Delivery O2 Flow Rate FiO2 11/23/17 17:47 99 19 146/88 (107) 98 Room Air Orders Orders Complete Blood Count With Diff (11/23/17 14:07) Basic Metabolic Panel (Bmp) (11/23/17 14:07) Prothrombin Time / Inr (Pt) (11/23/17 14:07) Act Partial Throm Time (Ptt) (11/23/17 14:07) Urinalysis - C+S If Indicated (11/23/17 14:07) Mri L Spine W/O Contrast (11/23/17 17:57) Labs Laboratory Tests Test 11/23/17 17:02 11/23/17 17:30 White Blood Count 13.0 TH/MM3 Red Blood Count 3.55 MIL/MM3 Hemoglobin 10.3 GM/DL Hematocrit 31.7 % Mean Corpuscular Volume 89.4 FL Mean Corpuscular Hemoglobin 29.1 PG Mean Corpuscular Hemoglobin Concent 32.5 % Red Cell Distribution Width 17.1 % Platelet Count 307 TH/MM3 Mean Platelet Volume 8.5 FL Neutrophils (%) (Auto) 76.8 % Lymphocytes (%) (Auto) 11.9 % Monocytes (%) (Auto) 7.0 % Eosinophils (%) (Auto) 3.7 % Basophils (%) (Auto) 0.6 % Neutrophils # (Auto) 10.0 TH/MM3 Lymphocytes # (Auto) 1.6 TH/MM3 Monocytes # (Auto) 0.9 TH/MM3 Eosinophils # (Auto) 0.5 TH/MM3 Basophils # (Auto) 0.1 TH/MM3 CBC Comment DIFF FINAL Differential Comment Prothrombin Time 10.6 SEC Prothromb Time International Ratio 1.0 RATIO Activated Partial Thromboplast Time 30.3 SEC Blood Urea Nitrogen 69 MG/DL Creatinine 3.76 MG/DL Random Glucose 137 MG/DL Calcium Level 9.3 MG/DL Sodium Level 136 MEQ/L Potassium Level 4.4 MEQ/L Chloride Level 100 MEQ/L Carbon Dioxide Level 25.9 MEQ/L Anion Gap 10 MEQ/L Estimat Glomerular Filtration Rate 16 ML/MIN Urine Color LIGHT-YELLOW Urine Turbidity CLEAR Urine pH 6.0 Urine Specific [place] 1.010 Urine Protein 300 mg/dL Urine Glucose (UA) TRACE mg/dL Urine Ketones NEG mg/dL Urine Occult Blood NEG Urine Nitrite NEG Urine Bilirubin NEG Urine Urobilinogen LESS THAN 2.0 MG/DL Urine Leukocyte Esterase NEG Urine RBC 1 /hpf Urine WBC 3 /hpf Urine Bacteria RARE /hpf Urine Mucus FEW /lpf Microscopic Urinalysis Comment CULT NOT INDICATED MDM Supervised Visit with JOSEPHINE: No Narrative Course MRI of the lumbar spine performed. Last 24 hours Impressions Lumbar Spine MRI 11/23/17 [id number] Signed Impressions: Service Date/Time: Thursday, November 23, 2017 19:50 - CONCLUSION: 1. At L4-5 there is interval left-sided laminectomy with postoperative fluid collection extending into the left lateral recess. There is a mild central canal stenosis at this level and there is some abnormal soft tissue and fluid surrounding the exiting left L4 nerve root which may be impinged. 2. Remainder of lumbar spine levels unchanged from October 08. Sukhjinder Atkins MD I discussed the results with Dr. Guaman and he says the patient can follow up in the office. Patient will be discharged home to follow up. Advised to return at any time for any worsening symptoms. Patient and comfortable with this plan. Diagnosis Primary Impression: Left leg weakness Patient Instructions: General Instructions, Lumbar Radiculopathy (ED) Additional Instruction: Follow up with Dr. Guaman. Return any time for any worsening symptoms. Disposition: 01 DISCHARGE HOME Condition: Stable Vandana Kennedy MD Nov 23, 2017 21:49
[2017-11-23 21:53] VITALS: BP 145/88; PULSE 92; RESP 18; O2SAT 98
== END 2017-11-23 22:07 | disposition home or self-care (01) ==
LOC: NEPE 13:28
DX: R53.1 Weakness (principal); M48.061 Spinal stenosis, lumbar region without neurogenic claudication; E78.00 Pure hypercholesterolemia, unspecified; I12.9 Hypertensive chronic kidney disease with stage 1 through stage 4 chronic kidney disease, or unspecified chronic kidney disease; E11.22 Type 2 diabetes mellitus with diabetic chronic kidney disease; N18.4 Chronic kidney disease, stage 4 (severe); Z79.4 Long term (current) use of insulin; Z98.890 Other specified postprocedural states; Z79.899 Other long term (current) drug therapy
CPT/HCPCS: 72148; 80048; 81001; 85025; 85610; 85730; 99284